=== PATIENT | male | born 1945 | race Caucasian/White ===

== ENCOUNTER 2020-09-17 | Outpatient (REF) | payer MEDICARE, SELFPAY | END 2020-09-17 00:01 | disposition home or self-care (01) | LOC: HO.VC | PROVIDERS: Visit Provider Internal Medicine | DX: Z23 Encounter for immunization (principal) | CPT/HCPCS: 0011A ==

== ENCOUNTER 2020-10-14 | Outpatient (REF) | payer MEDICARE, OTHER, SELFPAY | END 2020-10-14 00:01 | disposition home or self-care (01) | LOC: HO.VC | PROVIDERS: Visit Provider Internal Medicine | DX: Z23 Encounter for immunization (principal) | CPT/HCPCS: 0012A ==

== ENCOUNTER 2022-07-19 13:10 | Outpatient (REF) | payer MEDICARE, SELFPAY ==
[2022-07-19 16:58] LABS: Hematocrit 42.6 % (42.0-52.0); Hemoglobin 14.3 g/dl (14.0-18.0); Mean Corpuscular HGB Conc 33.6 g/dl (31.0-36.0); Mean Corpuscular Hemoglobin 33.3 pg (27.0-33.0); Mean Corpuscular Volume 99.3 fL (80.0-98.0); Mean Platelet Volume 9.2 fL (9.4-12.4); Platelet Count 196 X10*3/uL (160-400); Red Blood Count 4.29 X10*6/uL (4.60-5.80); Red Cell Distribution Width 11.5 % (11.0-16.0)
[2022-07-19 17:31] LABS: Alanine Aminotransferase 18 U/L (0-40); Albumin Level 4.5 g/dL (3.5-5.0); Alkaline Phosphatase 59 U/L (39-117); Anion Gap 12 (12-20); Aspartate Amino Transferase 22 U/L (5-37); Bilirubin Direct 0.2 mg/dL (0.0-0.5); Bilirubin Total 0.6 mg/dL (0.0-1.0); Blood Urea Nitrogen 18 mg/dL (9-16); Calcium 9.3 mg/dL (8.4-10.2); Carbon Dioxide 29 mmol/L (22-29); Chloride 100 mmol/L (96-108); Cholesterol 165 mg/dL; Estimated Glomerular Filt Rate > 60; Glucose Random 75 mg/dL (60-115); HDL Cholesterol 43 mg/dL; LDL Cholesterol Calculated 91 mg/dl; Potassium 4.3 mmol/L (3.3-5.1); Sodium 137 mmol/L (135-145); Thyroid Stimulating Hormone 1.24 uIU/mL (0.32-4.0); Total Protein 6.9 g/dL (6.5-8.0); Triglycerides 158 mg/dL
== END 2022-07-19 13:11 | disposition home or self-care (01) ==
LOC: HO.HMGCLDS 13:10
PROVIDERS: PCP Internal Medicine; Visit Provider Internal Medicine
DX: E78.00 Pure hypercholesterolemia, unspecified (principal); I10 Essential (primary) hypertension
CPT/HCPCS: 36415; 80048; 80061; 80076; 84443; 85027

== ENCOUNTER 2022-12-07 10:27 | Outpatient (REF) | payer MEDICARE, SELFPAY ==
--- NOTE | ~2022-12-07 | XR_ITS ---
EXAMINATION: XR CHEST CLINICAL INFORMATION: Cough. COMPARISON: January 09, 2011. TECHNIQUE: 2 views of the chest were obtained. XR/XR chest 2V FINDINGS/IMPRESSION: There is no acute radiographic finding. No focal infiltrate, effusion, or pneumothorax is seen. A calcified right middle lobe granuloma appears similar compared with prior. Mild biapical fibrotic changes and mild emphysema appear similar. There is a normal variant azygous fissure. The cardiovascular structures, mediastinum, bones, and soft tissues appear unremarkable.
== END 2022-12-07 10:28 | disposition home or self-care (01) ==
LOC: HO.HMGCX 10:27
PROVIDERS: PCP Internal Medicine; Visit Provider Internal Medicine
DX: R05.9 Cough, unspecified (principal)
CPT/HCPCS: 71046

== ENCOUNTER 2023-01-28 08:35 | Outpatient (REF) | payer MEDICARE, SELFPAY ==
[2023-01-28 11:17] LABS: Appearance Urine Clear; Color Urine Yellow; Glucose Urine UA Negative (Negative); Leukocyte Esterase Urine Negative (Negative); Nitrite Urine Negative (Negative); PH 6.5 (5.0-9.0); Urine Blood Negative (Negative); Urine Ketones Negative (Negative); Urine Protein Negative (Neg-Trace)
[2023-01-28 11:36] LABS: Hematocrit 42.2 % (42.0-52.0); Hemoglobin 14.4 g/dl (14.0-18.0); Mean Corpuscular HGB Conc 34.1 g/dl (31.0-36.0); Mean Corpuscular Hemoglobin 33.9 pg (27.0-33.0); Mean Corpuscular Volume 99.3 fL (80.0-98.0); Mean Platelet Volume 9.3 fL (9.4-12.4); Platelet Count 188 X10*3/uL (160-400); Red Blood Count 4.25 X10*6/uL (4.60-5.80); Red Cell Distribution Width 11.9 % (11.0-16.0); White Blood Count 5.5 X10*3/uL (4.8-10.8)
[2023-01-28 12:11] LABS: Alanine Aminotransferase 15 U/L (0-40); Albumin Level 4.1 g/dL (3.5-5.0); Alkaline Phosphatase 58 U/L (39-117); Anion Gap 11 (12-20); Aspartate Amino Transferase 24 U/L (5-37); Bilirubin Direct 0.2 mg/dL (0.0-0.5); Bilirubin Total 0.8 mg/dL (0.0-1.0); Blood Urea Nitrogen 15 mg/dL (9-16); Calcium 9.5 mg/dL (8.4-10.2); Carbon Dioxide 27 mmol/L (22-29); Chloride 100 mmol/L (96-108); Cholesterol 132 mg/dL; Estimated Glomerular Filt Rate > 60; Glucose Random 89 mg/dL (60-115); HDL Cholesterol 44 mg/dL; LDL Cholesterol Calculated 76 mg/dl; Potassium 4.6 mmol/L (3.3-5.1); Sodium 133 mmol/L (135-145); Total Protein 6.7 g/dL (6.5-8.0); Triglycerides 61 mg/dL
[2023-01-28 12:20] LABS: Thyroid Stimulating Hormone 1.72 uIU/mL (0.32-4.0)
== END 2023-01-28 08:36 | disposition home or self-care (01) ==
LOC: HO.HMGCLDS 08:35
PROVIDERS: PCP Internal Medicine; Visit Provider Internal Medicine
DX: I10 Essential (primary) hypertension (principal); E78.00 Pure hypercholesterolemia, unspecified
CPT/HCPCS: 36415; 80048; 80061; 80076; 81003; 84443; 85027

== ENCOUNTER 2023-08-04 08:51 | Outpatient (AMB) | payer MEDICARE, SELFPAY ==
--- NOTE | 2023-08-04 08:54 | A.OFFPC_ITS ---
Vital Signs 08/04/23 08:55 Height 6 ft Weight 153 lb 8 oz BMI 20.8 BP 140/80 H Blood Pressure Location Lt brachial Position Sitting Pulse 62 Pulse Source Pulse Oximeter Pulse Oximetry (%) 100 Oxygen Delivery Method Room Air Intake Visit Reasons: 6mth f/u Intake Note: Patient is here to follow up on HTN, Hypercholesterolemia. 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 Operator Vertical: Not Required per policy Accompanied by: Self / Same As Patient Allergies hydrochlorothiazide Adverse Reaction (Unknown, Verified 08/04/23 09:37) hyponatremia ENVIRONMENTAL Allergy (Unknown, Uncoded 08/04/23 09:37) ITCHY EYES Tobacco use date assessed: 08/04/23 Fall risk assessment: No Falls in past year Last assessed Fall Risk: 08/04/23 Dental Screening Dental Screen Date: 08/04/23 Did you have a dental visit in the last 12 months?: No Did you have a dental problem in the last 6 months where you did not have access to dental care?: No Was dental information given to patient?: Patient has dentist HPI 6mth f/u HPI Details 77-year-old male presents to the office to discuss his chronic medical conditions. Patient is at baseline state of health. He is compliant with all medications and reports no side effects. Continues to drive. Sleep patterns are healthy. Able to function and do all activities of daily living. [facility] Medical History History of CVA (cerebrovascular accident) Allergic rhinitis Pure hypercholesterolemia, unspecified Essential (primary) hypertension Surgical History History of surgery of head History of appendectomy Family History Father No problems noted. Mother No problems noted. Daughter No problems noted. Daughter No problems noted. Social History Housing: House Alcohol intake: current Alcohol intake frequency: holidays/special occasions only Patient Tobacco Use Status: Never used Tobacco e-Cigarette/Vaping Use: Never Used Second Hand Smoke Exposure: No service: Yes Current occupational status: retired Cognitive needs: No Hearing needs: No Vision needs: Yes (Glasses) Questionnaire Thrive Questionnaire Date Thrive assessed: 01/27/23 EMANI-7 AMB Questionnaire EMANI-7 Date EMANI - 7 assessed: 01/27/23 Source: Developed by Drs. Diallo Randhawa, Shoshana Childress, Papa Elder and colleagues, with an educational jessica from [employer]. Physical exam (Primary Care) Vital Signs: Last Vital Signs Pulse 62 08/04/23 08:55 BP 140/80 H 08/04/23 08:55 Pulse Ox 100 08/04/23 08:55 Oxygen Delivery Method Room Air 08/04/23 08:55 Care Plan Goal for BP management: Blood pressure is in range. Continue medications at same dosage. BMI result Body Mass Index 20.8 Tobacco/Smoking Status: Tobacco use Status Tobacco use date assessed 08/04/23 08/04/23 09:02 Patient Tobacco Use Status Never used Tobacco 08/04/23 09:02 e-Cigarette/Vaping Use Never Used 08/04/23 09:02 Thrive Assessment: Date of Thrive Assessment Date Thrive assessed 01/27/23 08/04/23 09:02 Const General: cooperative and healthy appearing Nutritional Appearance: well nourished Orientation/consciousness: patient oriented x3 Limitations: no limitations HENMT Head: Yes normal to inspection Eyes General: appearance normal, both eyes and all related structures Neck Neck: Yes normal visual inspection Chest Chest palpation & inspection: normal palpation of entire chest wall Resp Effort & Inspection: normal respiratory effort Neuro General: patient oriented x3 Assessment and Plan Assessment & Plan (1) Essential (primary) hypertension: Code(s): I10 - Essential (primary) hypertension Plan: Blood pressure is in range. Continue medications at same dosage. (2) Pure hypercholesterolemia, unspecified: Code(s): E78.00 - Pure hypercholesterolemia, unspecified Plan: Blood work has been ordered. Will call with results. Medications: Refilled metoprolol tartrate 25 mg PO DAILY 90 tabs 0RF Coding Level of Care Code Est Pt Level 4 (58214) Diagnoses Essential (primary) hypertension I10 Pure hypercholesterolemia, unspecified E78.00
[2023-08-04 08:55] VITALS: BP 140/80; PULSE 62; O2SAT 100; BMI 20.8
== END 2023-08-04 09:31 | disposition home or self-care (01) ==
PROVIDERS: PCP Internal Medicine; Visit Provider Internal Medicine
DX: I10 Essential (primary) hypertension (principal); E78.00 Pure hypercholesterolemia, unspecified
CPT/HCPCS: 99214

== ENCOUNTER 2023-08-05 14:29 | Outpatient (REF) | payer MEDICARE, SELFPAY ==
[2023-08-05 16:14] LABS: Hemoglobin 14.6 g/dl (14.0-18.0); Mean Corpuscular Volume 97.1 fL (80.0-98.0); Mean Platelet Volume 9.2 fL (9.4-12.4); Platelet Count 190 X10*3/uL (160-400); Red Blood Count 4.43 X10*6/uL (4.60-5.80); Red Cell Distribution Width 11.5 % (11.0-16.0); White Blood Count 6.7 X10*3/uL (4.8-10.8)
[2023-08-05 16:23] LABS: Appearance Urine Clear; Color Urine Yellow; Glucose Urine UA Negative (Negative); Leukocyte Esterase Urine Negative (Negative); Nitrite Urine Negative (Negative); Specific Gravity - Urine 1.015 (1.005-1.025); Urine Blood Negative (Negative); Urine Ketones Negative (Negative); Urine Protein Negative (Neg-Trace)
[2023-08-05 20:48] LABS: Alanine Aminotransferase 16 U/L (0-40); Albumin Level 4.4 g/dL (3.5-5.0); Alkaline Phosphatase 58 U/L (39-117); Anion Gap 11 (12-20); Aspartate Amino Transferase 21 U/L (5-37); Bilirubin Direct 0.2 mg/dL (0.0-0.5); Bilirubin Total 0.4 mg/dL (0.0-1.0); Blood Urea Nitrogen 18 mg/dL (9-16); Calcium 9.4 mg/dL (8.4-10.2); Carbon Dioxide 28 mmol/L (22-29); Chloride 101 mmol/L (96-108); Cholesterol 152 mg/dL (<200); Estimated Glomerular Filt Rate > 60; Glucose Random 67 mg/dL (60-115); HDL Cholesterol 44 mg/dL (>40); LDL Cholesterol Calculated 86 mg/dL (<100); Sodium 136 mmol/L (135-145); Total Protein 7.1 g/dL (6.5-8.0); Triglycerides 114 mg/dL (<150)
[2023-08-05 21:02] LABS: Thyroid Stimulating Hormone 1.48 uIU/mL (0.32-4.0)
== END 2023-08-05 14:30 | disposition home or self-care (01) ==
LOC: HO.HMGCLDS 14:29
PROVIDERS: PCP Internal Medicine; Visit Provider Internal Medicine
DX: I10 Essential (primary) hypertension (principal); E78.00 Pure hypercholesterolemia, unspecified
CPT/HCPCS: 36415; 80048; 80061; 80076; 81003; 84443; 85027

== ENCOUNTER 2024-02-02 09:08 | Outpatient (AMB) | payer MEDICARE, SELFPAY ==
--- NOTE | 2024-02-02 09:17 | A.OFFPC_ITS ---
Vital Signs 02/02/24 09:19 Height 6 ft Weight 149 lb 8 oz BMI 20.3 BP 132/72 Blood Pressure Location Lt brachial Position Sitting Pulse 70 Pulse Source Pulse Oximeter Pulse Oximetry (%) 97 Oxygen Delivery Method Room Air Intake Visit Reasons: 6 month f/u Intake Note: Patient is here to follow up on HTN, Hypercholesterolemia. 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 Required: No Electric Meter Technician: Not Required per policy Accompanied by: Self / Same As Patient Allergies hydrochlorothiazide Adverse Reaction (Unknown, Verified 02/03/24 15:35) hyponatremia ENVIRONMENTAL Allergy (Unknown, Uncoded 02/03/24 15:35) ITCHY EYES Medication List - Last Reconciled 02/03/24 by Vinny Flores MD acetaminophen (Tylenol Extra Strength) 500 mg PO QPM PRN aspirin 325 mg PO QPM fluticasone propionate 50 mcg/actuation (Allergy Relief (fluticasone)) 1 spray intranasal DAILY lisinopril 10 mg PO DAILY loratadine (Allergy Relief (loratadine)) 10 mg PO DAILY metoprolol tartrate 25 mg PO DAILY psyllium seed (sugar) (Metamucil (sugar) oral powder) 1 tbsp PO DAILY simvastatin 20 mg PO QPM Tobacco use date assessed: 02/02/24 Fall risk assessment: No Falls in past year Last assessed Fall Risk: 02/02/24 Dental Screening Dental Screen Date: 02/02/24 Did you have a dental visit in the last 12 months?: Yes Did you have a dental problem in the last 6 months where you did not have access to dental care?: No Was dental information given to patient?: Patient has dentist (Dentures) HPI 6 month f/u HPI Details 78-year-old male presents to the office to discuss his chronic medical conditions. Patient is at baseline state of health and is able to do all activities of daily living. He received his 1st dose of his shingles shot. [facility] Medical History History of CVA (cerebrovascular accident) Allergic rhinitis Pure hypercholesterolemia, unspecified Essential (primary) hypertension Surgical History History of surgery of head History of appendectomy Family History Father No problems noted. Mother No problems noted. Daughter No problems noted. Daughter No problems noted. Social History Housing: House Alcohol intake: current Alcohol intake frequency: holidays/special occasions only Patient Tobacco Use Status: Never used Tobacco e-Cigarette/Vaping Use: Never Used Second Hand Smoke Exposure: No service: Yes Current occupational status: retired Cognitive needs: No Hearing needs: No Vision needs: Yes (Glasses) Questionnaire PHQ-9 Over the last 2 weeks, how often have you been bothered by any of the following problems? 1. Little interest or pleasure in doing things: not at all 2. Feeling down, depressed, or hopeless: not at all 3. Trouble falling or staying asleep, or sleeping too much: not at all 4. Feeling tired or having little energy: not at all 5. Poor appetite or overeating: not at all 6. Feeling bad about yourself - or that you are a failure or have let yourself or your family down: not at all 7. Trouble concentrating on things, such as reading the newspaper or watching television: not at all 8. Moving or speaking so slowly that other people could have noticed. Or the opposite - being so fidgety or restless that you have been moving around a lot more than usual: not at all 9. Thoughts that you would be better off or of hurting yourself in some way: not at all Total score: 0 Depression Screening Interpretation: Negative Depression Screening Done: Yes Source: Developed by Drs. Diallo Randhawa, Shoshana Childress, Papa Elder and colleagues, with an educational jessica from [employer]. Thrive Questionnaire Date Thrive assessed: 02/02/24 I am a: Patient What is your living situation today?: I have a steady place to live Within the past 12 months, did the food you bought not last and you didn't have the money to get more?: Never true Within the past 12 months, did you worry whether your food would run out before you got money to buy more?: Never true Do you have trouble paying for medicines?: No Do you have trouble getting transportation to medical appointments?: No Do you have trouble paying your heating and electricity bill?: No Do you have trouble taking care of your child, family member or friend?: No Do you have trouble with day-to-day activities such as bathing, preparing meals, shopping, managing finances, etc.?: No Are you currently unemployed and looking for a job?: No Are you interested in more education?: No Currently or been in a relationship where the following occur: no concerns reported THRIVE Score: 0 AUDIT C Alcohol Use Questionnaire (AUDIT-C) 1. How often do you have a drink containing alcohol?: 2-4 times a month 2. How many drinks containing alcohol do you have on a typical day when you are drinking?: 1 or 2 Total Score: 2 EMANI-7 AMB Questionnaire EMANI-7 Date EMANI - 7 assessed: 02/02/24 Feeling nervous, anxious, or on edge: 0 = Not at all Not being able to stop or control worryin = Not at all Worrying too much about different things: 0 = Not at all Trouble relaxin = Not at all Being so restless that it is hard to sit still: 0 = Not at all Becoming easily annoyed or irritable: 0 = Not at all Feeling afraid as if something awful might happen: 0 = Not at all Total EMANI-7 score (0-4 normal; 5-9 mild; 10-14 moderate; 15-21 severe): 0 Source: Developed by Drs. Diallo Randhawa, Shoshana Childress, Papa Elder and colleagues, with an educational jessica from [employer]. Physical exam (Primary Care) Vital Signs: Last Vital Signs Pulse 70 02/02/24 09:19 BP 132/72 02/02/24 09:19 Pulse Ox 97 02/02/24 09:19 Oxygen Delivery Method Room Air 02/02/24 09:19 BMI result Body Mass Index 20.3 Tobacco/Smoking Status: Tobacco use Status Tobacco use date assessed 02/02/24 02/02/24 09:26 Patient Tobacco Use Status Never used Tobacco 02/02/24 09:26 e-Cigarette/Vaping Use Never Used 02/02/24 09:26 PHQ-9: PHQ-9 Score PHQ-9: Total score 0 02/02/24 10:04 Depression Screening Interpretation: Negative Thrive Assessment: Date of Thrive Assessment Date Thrive assessed 02/02/24 02/02/24 09:26 Currently or been in a relationship where the following occur: no concerns reported Const General: cooperative and healthy appearing Nutritional Appearance: well nourished Orientation/consciousness: patient oriented x3 Limitations: no limitations HENMT Head: Yes normal to inspection Eyes General: appearance normal, both eyes and all related structures Neck Neck: Yes normal visual inspection Chest Chest palpation & inspection: normal palpation of entire chest wall Resp Effort & Inspection: normal respiratory effort Neuro General: patient oriented x3 Assessment and Plan Assessment & Plan (1) Essential (primary) hypertension: Code(s): I10 - Essential (primary) hypertension Plan: Continue current medications. Orders: Orders Lipid Panel Today I10 - Essential (primary) hypertension Basic Metabolic Panel Today I10 - Essential (primary) hypertension Liver Panel Today I10 - Essential (primary) hypertension Thyroid Stimulating Hormone Today I10 - Essential (primary) hypertension UA and rflx microscopic Today I10 - Essential (primary) hypertension Complete Blood Count no Diff Today I10 - Essential (primary) hypertension Medications: Refilled metoprolol tartrate 25 mg PO DAILY 90 tabs 0RF lisinopril needs an appointment for further refills 10 mg PO DAILY 90 tabs 0RF Coding Level of Care Code Est Pt Level 3 (62161) Complex EM visit Add On G2211 Diagnoses Essential (primary) hypertension I10
[2024-02-02 09:19] VITALS: BP 132/72; PULSE 70; O2SAT 97; BMI 20.3
== END 2024-02-02 10:10 | disposition home or self-care (01) ==
PROVIDERS: PCP Internal Medicine; Visit Provider Internal Medicine
DX: I10 Essential (primary) hypertension (principal)
CPT/HCPCS: 99213; G2211

== ENCOUNTER 2024-02-03 07:58 | Outpatient (REF) | payer MEDICARE, SELFPAY ==
[2024-02-03 11:33] LABS: Hematocrit 42.5 % (42.0-52.0); Hemoglobin 14.7 g/dl (14.0-18.0); Mean Corpuscular HGB Conc 34.6 g/dl (31.0-36.0); Mean Corpuscular Hemoglobin 33.9 pg (27.0-33.0); Mean Corpuscular Volume 98.2 fL (80.0-98.0); Mean Platelet Volume 9.1 fL (9.4-12.4); Platelet Count 198 X10*3/uL (160-400); Red Blood Count 4.33 X10*6/uL (4.60-5.80); Red Cell Distribution Width 11.5 % (11.0-16.0); White Blood Count 6.1 X10*3/uL (4.8-10.8)
[2024-02-03 12:03] LABS: Appearance Urine Clear; Color Urine Yellow; Glucose Urine UA Negative (Negative); Leukocyte Esterase Urine Negative (Negative); Nitrite Urine Negative (Negative); Urine Blood Negative (Negative); Urine Ketones Negative (Negative); Urine Protein Negative (Neg-Trace)
[2024-02-03 12:05] LABS: Alanine Aminotransferase 14 U/L (0-40); Albumin Level 4.3 g/dL (3.5-5.0); Alkaline Phosphatase 59 U/L (39-117); Anion Gap 10 (12-20); Aspartate Amino Transferase 21 U/L (5-37); Bilirubin Direct 0.2 mg/dL (0.0-0.5); Bilirubin Total 0.7 mg/dL (0.0-1.0); Blood Urea Nitrogen 15 mg/dL (9-16); Calcium 9.5 mg/dL (8.4-10.2); Carbon Dioxide 28 mmol/L (22-29); Chloride 100 mmol/L (96-108); Cholesterol 143 mg/dL (<200); Estimated Glomerular Filt Rate > 60; Glucose Random 98 mg/dL (60-115); HDL Cholesterol 43 mg/dL (>40); LDL Cholesterol Calculated 87 mg/dL (<100); Potassium 4.3 mmol/L (3.3-5.1); Sodium 134 mmol/L (135-145); Total Protein 6.8 g/dL (6.5-8.0); Triglycerides 67 mg/dL (<150)
[2024-02-03 12:27] LABS: Thyroid Stimulating Hormone 1.82 uIU/mL (0.32-4.0)
== END 2024-02-03 07:59 | disposition home or self-care (01) ==
LOC: HO.HMGCLDS 07:58
PROVIDERS: PCP Internal Medicine; Visit Provider Internal Medicine
DX: I10 Essential (primary) hypertension (principal)
CPT/HCPCS: 36415; 80048; 80061; 80076; 81003; 84443; 85027

== ENCOUNTER 2024-03-30 09:54 | Outpatient (AMB) | payer MEDICARE, SELFPAY ==
--- NOTE | 2024-03-30 09:56 | MHC.OFFWIV ---
Intake Vital Signs 03/30/24 10:00 Height 6 ft Weight 153 lb BMI 20.7 BP 110/70 Blood Pressure Location Rt brachial Position Sitting Pulse 82 Pulse Source Pulse Oximeter Temp 98.4 F Temp Source Oral Pulse Oximetry (%) 98 Oxygen Delivery Method Room Air Intake Visit Reasons: EP headache, fever, chills, no appetite Intake Note: Patient here for low grade fever,clear mucus and no appetite since yesterday. pt states he took an at home covid test and came back positive. Patient Tobacco Use Status: Never used Tobacco Allergies hydrochlorothiazide Adverse Reaction (Unknown, Verified 03/30/24 10:02) hyponatremia ENVIRONMENTAL Allergy (Unknown, Uncoded 03/30/24 10:02) ITCHY EYES Do you need a note to return to daycare/school/sports/work: No HPI HPI Comments History of Present Illness Details 78 y/o male patient who presents to the walk in clinic with c/o URI symptoms since yesterday. He did use a Home test kit with positive results. But reports that the test Kit had back in August. [facility] Medical History History of CVA (cerebrovascular accident) Allergic rhinitis Pure hypercholesterolemia, unspecified Essential (primary) hypertension Surgical History History of surgery of head History of appendectomy Family History Father No problems noted. Mother No problems noted. Daughter No problems noted. Daughter No problems noted. Social History Housing: House Alcohol intake: current Alcohol intake frequency: holidays/special occasions only Patient Tobacco Use Status: Never used Tobacco e-Cigarette/Vaping Use: Never Used Second Hand Smoke Exposure: No service: Yes Current occupational status: retired Cognitive needs: No Hearing needs: No Vision needs: Yes (Glasses) Review of Systems Const All systems reviewed & are unremarkable except as noted in HPI and below Physical Exam Vital Signs: Last Vital Signs Temp 98.4 F 03/30/24 10:00 Pulse 82 03/30/24 10:00 BP 110/70 03/30/24 10:00 Pulse Ox 98 03/30/24 10:00 Oxygen Delivery Method Room Air 03/30/24 10:00 BMI result Body Mass Index 20.7 Const General: comfortable and no acute distress Orientation/consciousness: patient oriented x3 HEENT Head: Yes normocephalic Ears: external ears normal and TM's normal bilaterally General nose exam: Normal external nose present Face and sinus: Yes sinuses nontender Mouth: moist mucous membranes Throat: Yes posterior oropharynx normal Resp Effort & Inspection: normal respiratory effort and able to speak in complete sentences Auscultation: clear to auscultation bilaterally, no crackles, no rales, no rhonchi and no wheezes Cardio Heart sounds: S1 normal heart sound present and S2 normal heart sound present Neuro General: patient oriented x3, gait normal and moves all extremities Psych Speech and movement: Normal speech and movement present Assessment & Plan Assessment & Plan (1) Upper respiratory infection: Code(s): J06.9 - Acute upper respiratory infection, unspecified Qualifiers: URI type: unspecified viral URI Qualified Code(s): J06.9 - Acute upper respiratory infection, unspecified Plan: Ordered SARs Acetaminophen for pain relief Rest and hydrate well. Orders: Orders SARS-CoV2/FLU/RSV Today J06.9 - Acute upper respiratory infection, unspecified Coding Level of Care Code Est Pt Level 3 (73151) Diagnoses Viral upper respiratory tract infection J06.9 URI type: unspecified viral URI Time Spent (min) 15
[2024-03-30 10:00] VITALS: BP 110/70; PULSE 82; TEMP 36.9; O2SAT 98; BMI 20.7
== END 2024-03-30 10:55 | disposition home or self-care (01) ==
PROVIDERS: PCP Internal Medicine; Visit Provider Nurse Practitioner Family
DX: J06.9 Acute upper respiratory infection, unspecified (principal)
CPT/HCPCS: 99213

== ENCOUNTER 2024-03-30 13:15 | Outpatient (REF) | payer MEDICARE, SELFPAY ==
[2024-03-30 14:05] LABS: Influenza A PCR NEGATIVE (Negative); Influenza B PCR NEGATIVE (Negative); Resp Syncy Virus RNA Qual PCR NEGATIVE (Negative); SARS COV2 PCR INHOUSE POSITIVE (Negative)
== END 2024-03-30 13:16 | disposition home or self-care (01) ==
LOC: HO.LNP 13:15
PROVIDERS: Visit Provider Nurse Practitioner Family
DX: J06.9 Acute upper respiratory infection, unspecified (principal)
CPT/HCPCS: 0241U

== ENCOUNTER 2024-04-01 04:06 | Observation (INO) | payer MEDICARE, SELFPAY ==
[2024-04-01] VITALS (12 sets, daily range): BP systolic 103–168; BP diastolic 57–82; PULSE 70–107; RESP 16–20; TEMP 36.6–37.7; O2SAT 90–95; BMI 19.3; BMI 19.8
--- NOTE | 2024-04-01 | ECG_ITS ---
Test Reason : WEAKNESS Blood Pressure : / mmHG Vent. Rate : 077 BPM Atrial Rate : 077 BPM P-R Int : 146 ms QRS Dur : 086 ms QT Int : 354 ms P-R-T Axes : 074 056 068 degrees QTc Int : 400 ms Normal sinus rhythm Normal ECG When compared with ECG of 01-OCT-2015 16:51, No significant change was found Referred By: Generic ED Physician Electronically Signed By:JOSEPH REMY
--- NOTE | ~2024-04-01 | XR_ITS ---
EXAMINATION: XR CHEST CLINICAL INFORMATION: Shortness of breath. COMPARISON: 12/07/2022 TECHNIQUE: Frontal view of the chest was obtained. FINDINGS: The cardiomediastinal silhouette is stable. There is no focal consolidation or pleural effusions. The bony structures and soft tissues are unremarkable. XR/XR chest 1V IMPRESSION: No acute cardiopulmonary process.
[2024-04-01 04:28] LABS: MANUAL DIFF FLAG NO
[2024-04-01 04:29] LABS: Basophils Percent Auto 0.4 % (0-2); Hematocrit 40.2 % (42.0-52.0); Hemoglobin 14.3 g/dl (14.0-18.0); Imm Gran Abs Auto 0.02 X10*3/uL (0.00-0.03); Imm Gran Pct Auto 0.4 % (0.0-0.4); Lymphocytes Absolute Auto 0.6 X10*3/uL (1.2-4.9); Lymphocytes Percent Auto 12.2 % (20-40); Mean Corpuscular HGB Conc 35.6 g/dl (31.0-36.0); Mean Corpuscular Volume 95.5 fL (80.0-98.0); Monocytes Absolute Auto 0.8 X10*3/uL (0.1-1.2); Monocytes Percent Auto 16.2 % (2-11); Neutrophils Absolute Auto 3.3 x10*3/uL (2.0-8.3); Neutrophils Percent Auto 70.8 % (45-73); Platelet Count 103 X10*3/uL (160-400); Red Blood Count 4.21 X10*6/uL (4.60-5.80); Red Cell Distribution Width 11.8 % (11.0-16.0); White Blood Count 4.7 X10*3/uL (4.8-10.8)
--- NOTE | 2024-04-01 04:29 | PC.NURSE ---
pt biba from home, a&ox4, respirations even and unlabored. pt reporting being diagnosed with covid on tuesday and reports increased sore throat, shortness of breath, weakness, and dry cough. pt denies chest pain, n,v,d. 20G placed in left forearm, labs obtained and sent. pt noted to have thick sputum cough.
[2024-04-01 04:35] LABS: IDNOW Serial# 6674DD1D; Strep A Nucleic Acid Negative (Negative)
[2024-04-01 04:45] LABS: Alanine Aminotransferase 22 U/L (0-40); Albumin Level 4.3 g/dL (3.5-5.0); Alkaline Phosphatase 57 U/L (39-117); Anion Gap 14 (12-20); Aspartate Amino Transferase 33 U/L (5-37); Bilirubin Total 0.5 mg/dL (0.0-1.0); Blood Urea Nitrogen 18 mg/dL (9-16); Calcium 8.9 mg/dL (8.4-10.2); Carbon Dioxide 24 mmol/L (22-29); Chloride 98 mmol/L (96-108); Creatinine Clr Calc Pharmacy 47.4; Estimated Glomerular Filt Rate > 60; Glucose Random 93 mg/dL (60-115); Potassium 4.1 mmol/L (3.3-5.1); Sodium 132 mmol/L (135-145); Total Protein 6.8 g/dL (6.5-8.0)
[2024-04-01 05:04] LABS: Influenza A PCR NEGATIVE (Negative); Influenza B PCR NEGATIVE (Negative); Resp Syncy Virus RNA Qual PCR NEGATIVE (Negative); SARS COV2 PCR INHOUSE POSITIVE (Negative)
[2024-04-01] MEDS: Albuterol Sulfate 2.5 MG, Albuterol/Iprat 2.5/0.5MG 3 ML 3 ML INHALE (06:00)
--- NOTE | 2024-04-01 06:23 | PC.NURSE ---
respiratory at bedside providing breathing treatment for pt.
--- NOTE | 2024-04-01 06:57 | ED_ITS ---
HPI - URI/Sore Throat General Chief Complaint: Upper Respiratory Symptoms Stated Complaint: +COVIID/WEAKNESS/SORE THROAT/DIARRHEA Time Seen by Provider: 04/01/24 06:43 Source: patient Mode of arrival: ambulatory Limitations: no limitations History of Present Illness ED Provider: Mariana LEA HPI Narrative: This is an 78-year-old male history of hypertension, hyperlipidemia, squamous cell carcinoma in-situ presenting to the emergency department with cough, fatigue, malaise, myalgias , diarrhea ongoing since last March 29. Patient reports that he went to the walk-in center on Tuesday was told he had COVID-19. He reports his cough has worsened now he has a sore throat and he feels overall unwell. He was told to come to the emergency department if symptoms worsened. He reports low-grade fevers at home. He denies chest pain, nausea, vomiting, abdominal pain, headache, vision changes, dizziness and weakness. Related Data Home Medications ?Medication ?Instructions ?Recorded ?Confirmed acetaminophen 500 mg tablet 500 mg PO QPM PRN 10/07/20 01/27/23 (Tylenol Extra Strength) aspirin 325 mg tablet 325 mg PO QPM 10/07/20 01/27/23 fluticasone propionate 50 1 spray intranasal DAILY 10/07/20 01/27/23 mcg/actuation nasal spray,suspension (Allergy Relief (fluticasone)) loratadine 10 mg tablet (Allergy 10 mg PO DAILY 10/07/20 01/27/23 Relief (loratadine)) psyllium seed (sugar) oral powder 1 tbsp PO DAILY 10/07/20 01/27/23 (Metamucil (sugar) oral powder) Previous Rx's ?Medication ?Instructions ?Recorded metoprolol tartrate 25 mg tablet 25 mg PO DAILY #90 tabs 02/08/24 lisinopril 10 mg tablet 10 mg PO DAILY #90 tabs 02/29/24 simvastatin 20 mg tablet 20 mg PO QPM #90 tabs 03/16/24 Allergies Allergy/AdvReac Type Severity Reaction Status Date / Time hydrochlorothiazide AdvReac Unknown hyponatremi Verified 04/01/24 04:14 a ENVIRONMENTAL Allergy Unknown ITCHY EYES Uncoded 04/01/24 04:14 Review of Systems 2 Review of Systems: Yes all other systems are reviewed and are negative PMFSH Past Medical History Attestation statement: The following information was validated with the patient. Source: old records reviewed and nursing notes reviewed Medical History History of CVA (cerebrovascular accident) Allergic rhinitis Pure hypercholesterolemia, unspecified Essential (primary) hypertension Surgical History History of surgery of head History of appendectomy Family History Family History Father No problems noted. Mother No problems noted. Daughter No problems noted. Daughter No problems noted. Social History Social History Housing: House Alcohol intake: current Alcohol intake frequency: holidays/special occasions only Patient Tobacco Use Status: Never used Tobacco Smoked in Last 30 Days: No e-Cigarette/Vaping Use: Never Used Second Hand Smoke Exposure: No Use of substances other than those prescribed or required for medical reasons: No Advance Directives: Yes Advance Directives Information Provided: No Advance Directives on File: No Do you have a plan to hurt others: No Plan service: Yes Current occupational status: retired Cognitive needs: No Hearing needs: No Vision needs: Yes (Glasses) Physical Exam 2 Vital Signs: Vital Signs: Last Vital Signs Temp 98.8 F 04/01/24 06:21 Pulse 102 H 04/01/24 06:21 Resp 18 04/01/24 06:21 BP 141/65 H 04/01/24 06:21 Pulse Ox 95 04/01/24 06:21 O2 Del Method Room Air 04/01/24 06:21 BMI result Body Mass Index 19.3 vss Appearance: Alert.? Oriented X3.? No acute distress.? Head: Normocephalic, atraumatic, no step-offs or deformities Eyes: Pupils equal, round and reactive to light.? ENT: Pharynx normal.? Neck: Normal inspection.? Neck supple.? CVS: Normal heart rate and rhythm.? Pulses normal.? Respiratory: No respiratory distress.? Breath sounds w/ slight wheezing throughout .? Abdomen: Soft and nontender.? Skin: Skin warm and dry.? Normal skin color.? Normal skin turgor.? Extremities: No lower extremity edema.? No calf ttp. 5/5 strength to bilateral upper and lower extremities Neuro: Oriented X 3.? No motor deficit.? No sensory deficit. CN 2-12 intact Course Reevaluation(s) Reevaluation #1: CBC with leukopenia likely secondary to viral illness, platelets also low again likely secondary to viral illness. Chemistry with low sodium 132, slightly elevated BUN and creatinine likely secondary to poor p.o. intake/dehydration. For these reasons fluids ordered. No other acute electrolyte abnormalities needing intervention . Confirmed patient COVID positive. Chest x-ray with no acute cardiopulmonary process. Patient far too weak to stand up and ambulate for ambulatory O2 trial. EKG pending. Time: 08:24 Reevaluation #2: Plan hospital admission. Medications Administered Discontinued Medications Generic Name Dose Route Start Last Admin Trade Name Freq PRN Reason Stop Dose Admin Albuterol Sulfate 2.5 mg/ 0 mg 04/01/24 05:42 04/01/24 06:00 Albuterol/Ipratropium 3 ml INHALE 04/01/24 05:43 3.5 dose ONCE ONE Administration Sodium Chloride 500 mls @ 500 mls/hr 04/01/24 07:00 04/01/24 08:17 Ns IV 04/01/24 07:59 Infused .Q1H LUKASZ Infusion Lidocaine HCl 15 ml 04/01/24 06:59 04/01/24 07:10 Lidocaine Hcl Viscous 2 % 15 Ml Solution MUCOUS MEM 04/01/24 07:00 15 ml ONCE ONE Administration Medical Decision Making Medical Decision Making [facility] Narrative: 0700 78 yo m known covid + since tuesday presents w/ worsening URI sx PE - slight wheezing throughout Hx and pe concerning for COVID 19. Will rule out pna and hypoxia. Unlikley PE, ARDS, ACS Plan- labs, imaging Differential Diagnosis Differential Diagnoses: The differential diagnosis associated with the presentation includes Hx and pe concerning for COVID 19. Will rule out pna and hypoxia. Unlikley PE, ARDS, ACS Admission/Observation Consideration of admission/observation: Escalation of care including admission/observation considered possible Lab Data [facility] Lab Attestation statement: I reviewed the patient's lab results. 04/01/24 04:19 04/01/24 04:19 Labs: Lab Results 04/01/24 Range/Units 04:19 WBC 4.7 L (4.8-10.8) X10*3/uL RBC 4.21 L (4.60-5.80) X10*6/uL Hgb 14.3 (14.0-18.0) g/dl Hct 40.2 L (42.0-52.0) % MCV 95.5 (80.0-98.0) fL MCH 34.0 H (27.0-33.0) pg MCHC 35.6 (31.0-36.0) g/dl RDW 11.8 (11.0-16.0) % Plt Count 103 L D (160-400) X10*3/uL MPV 9.0 L (9.4-12.4) fL Immature Gran % (Auto) 0.4 (0.0-0.4) % Neut % (Auto) 70.8 (45-73) % Lymph % (Auto) 12.2 L (20-40) % Hayes % (Auto) 16.2 H (2-11) % Eos % (Auto) 0.0 (0-4) % Baso % (Auto) 0.4 (0-2) % Lymph # (Auto) 0.6 L (1.2-4.9) X10*3/uL Hayes # (Auto) 0.8 (0.1-1.2) X10*3/uL Eos # (Auto) 0.0 (0.0-0.4) X10*3/uL Baso # (Auto) 0.0 (0.0-0.2) X10*3/uL Abs Immat Gran (auto) 0.02 (0.00-0.03) X10*3/uL Absolute Neuts (auto) 3.3 (2.0-8.3) x10*3/uL Absolute Nucleated RBC 0.000 (0.0-0.012) X10*3/uL Nucleated RBC % (auto) 0.0 (0.0-0.2) /100WBC Sodium 132 L (135-145) mmol/L Potassium 4.1 (3.3-5.1) mmol/L Chloride 98 (96-108) mmol/L Carbon Dioxide 24 (22-29) mmol/L Anion Gap 14 (12-20) BUN 18 H (9-16) mg/dL Creatinine 1.13 (0.5-1.4) mg/dL Estim Creat Clear Calc 47.4 Estimated GFR > 60 Random Glucose 93 (60-115) mg/dL Calcium 8.9 D (8.4-10.2) mg/dL Total Bilirubin 0.5 (0.0-1.0) mg/dL AST 33 (5-37) U/L ALT 22 (0-40) U/L Alkaline Phosphatase 57 (39-117) U/L Total Protein 6.8 (6.5-8.0) g/dL Albumin 4.3 (3.5-5.0) g/dL Influenza Type A (PCR) NEGATIVE (Negative) Influenza Type B (PCR) NEGATIVE (Negative) RSV RNA Qual (PCR) NEGATIVE (Negative) SARS-CoV-2 RNA (RT-PCR) POSITIVE A (Negative) S. pyogenes GrpA LORI Negative (Negative) Independent Interpretation I performed an independent interpretation of an: Plain X-Ray (XR/XR chest 1V IMPRESSION: No acute cardiopulmonary process. ) Radiology Impression Discussion of test interpretation with radiology: I have reviewed the radiologist's reading. External Record Review External record reviewed: Office record, Outpatient record and Prior outpatient labs Chronic Conditions Patient?s care impacted by: Hypertension and Other (HLD ) Discharge Plan Discharge Clinical Impression: COVID-19, Physical deconditioning Patient Disposition: Admitted As Inpatient Prescriptions: No Action metoprolol tartrate 25 mg tablet 25 mg PO DAILY Qty: 90 0RF lisinopril 10 mg tablet 10 mg PO DAILY Qty: 90 0RF Rx Instructions: needs an appointment for further refills simvastatin 20 mg tablet 20 mg PO QPM Qty: 90 0RF aspirin 325 mg tablet 325 mg PO QPM acetaminophen [Tylenol Extra Strength] 500 mg tablet 500 mg PO QPM PRN Metamucil (sugar) Powder 1 tbsp PO DAILY loratadine [Allergy Relief (loratadine)] 10 mg tablet 10 mg PO DAILY fluticasone propionate [Allergy Relief (fluticasone)] 50 mcg/actuation spray,suspension 1 spray intranasal DAILY Rx Instructions: administer into each nostril Print Language: Danish
[2024-04-01] MEDS: Lidocaine HCl Viscous 2 % 15 ML SOLUTION MUCOUS MEM (07:10)
[2024-04-01] MEDS: 0.9 % Sodium Chloride 500 ML IV (07:12)
--- NOTE | 2024-04-01 07:16 | PC.NURSE ---
medicated per the MAR, fluids infusing at this time. remains alert and oriented with even and unlabored respirations
--- NOTE | 2024-04-01 08:27 | PC.NURSE ---
utilized urinal at bedside, patient unsteady upon standing. usually independent at home, however patient needed assistance to get up out of bed and stand to use urinal. reporting some improvement s/p lidocaine
--- NOTE | 2024-04-01 10:05 | PHA.MEDREC ---
Addendum entered by David Snyder RPh 04/01/24 10:33: Reviewed [facility] Original Note: Pharmacy Consult ? Medication Reconciliation Pharmacy has completed the medication reconciliation. Spoke with patient to confirm medications. He took his medications yesterday. he confirmed his aspirin is 325mg daily.
--- NOTE | 2024-04-01 10:39 | P.HPHOSP_ITS ---
History of Present Illness Date of Service: 04/01/24 Chief Complaint: sob, weakness, +covid since 03/29 An 78-year-old male with a history of hypertension, hyperlipidemia, and a past cerebrovascular accident presents with weakness, cough, sore throat and diarrhea. He was diagnosed with COVID-19 on 03/29 and has been feeling generally unwell, which worsened last night with the onset of diarrhea, cough, and a sore throat. He denies shortness of breath but has had a poor appetite. He is not hypoxic, his chest X-ray shows no acute findings, his COVID-19 test is still positive, and his electrolytes are within normal limits. Review of Systems 2 Review of Systems: Gen: no fever Resp:-sob, +cough, wheezign CV: no chest, no AGUDELO, no leg edema GI: No n/v, no abd pain Neuro: No confusion [facility] Medical History History of CVA (cerebrovascular accident) Allergic rhinitis Pure hypercholesterolemia, unspecified Essential (primary) hypertension Family History Father No problems noted. Mother No problems noted. Daughter No problems noted. Daughter No problems noted. Surgical History History of surgery of head History of appendectomy Social History Housing: House Alcohol intake: current Alcohol intake frequency: holidays/special occasions only Patient Tobacco Use Status: Never used Tobacco Smoked in Last 30 Days: No e-Cigarette/Vaping Use: Never Used Second Hand Smoke Exposure: No Use of substances other than those prescribed or required for medical reasons: No Advance Directives: Yes Advance Directives Information Provided: No Advance Directives on File: No Do you have a plan to hurt others: No Plan service: Yes Current occupational status: retired Cognitive needs: No Hearing needs: No Vision needs: Yes (Glasses) Meds Allergies Allergy/AdvReac Type Severity Reaction Status Date / Time hydrochlorothiazide AdvReac Unknown hyponatremi Verified 04/01/24 04:14 a ENVIRONMENTAL Allergy Unknown ITCHY EYES Uncoded 04/01/24 04:14 Home Medications ?Medication ?Instructions ?Recorded ?Confirmed ?Last Taken ?Type acetaminophen 500 mg tablet 500 mg PO QPM PRN pain or fever 10/07/20 04/01/24 Unknown History (Tylenol Extra Strength) aspirin 325 mg tablet 325 mg PO QPM 10/07/20 04/01/24 03/31/24 History fluticasone propionate 50 1 spray intranasal DAILY PRN 10/07/20 04/01/24 Unknown History mcg/actuation nasal Allergy Symptoms spray,suspension (Allergy Relief (fluticasone)) loratadine 10 mg tablet (Allergy 10 mg PO DAILY 10/07/20 04/01/24 03/31/24 History Relief (loratadine)) psyllium seed (sugar) oral powder 1 tbsp PO DAILY PRN Constipation 10/07/20 04/01/24 Unknown History (Metamucil (sugar) oral powder) simvastatin 20 mg tablet 20 mg PO BEDTIME 04/01/24 04/01/24 03/31/24 History Physical Exam 2 Vital Signs and Narrative: Vital Signs: Last Vital Signs Temp 99.5 F 04/01/24 10:30 Pulse 87 04/01/24 10:30 Resp 18 04/01/24 10:30 BP 144/69 H 04/01/24 10:30 Pulse Ox 93 04/01/24 10:30 O2 Del Method Room Air 04/01/24 10:30 BMI result Body Mass Index 19.3 Const: Other: General: AO X 3, no acute distress Heent: no significant erythema of throat Resp: CTA bilateral, no wheeze, normal effort, occasional dry cough CVS: S1,S2,RRR GI: +BS, NT, no distention Skin: No rash Neuro: motor grossly intact Psych: appropriate affect Results Labs 04/01/24 04:19 04/01/24 04:19 Labs: Laboratory Results - last 24 hr 04/01/24 04:19 MCV 95.5 MCH 34.0 H MCHC 35.6 RDW 11.8 Plt Count 103 L D MPV 9.0 L Immature Gran % (Auto) 0.4 Neut % (Auto) 70.8 Lymph % (Auto) 12.2 L Bledsoe % (Auto) 16.2 H Eos % (Auto) 0.0 Baso % (Auto) 0.4 Lymph # (Auto) 0.6 L Bledsoe # (Auto) 0.8 Eos # (Auto) 0.0 Baso # (Auto) 0.0 Abs Immat Gran (auto) 0.02 Absolute Neuts (auto) 3.3 Absolute Nucleated RBC 0.000 Nucleated RBC % (auto) 0.0 Anion Gap 14 Estim Creat Clear Calc 47.4 Estimated GFR > 60 Random Glucose 93 Calcium 8.9 D Total Bilirubin 0.5 AST 33 ALT 22 Alkaline Phosphatase 57 Total Protein 6.8 Albumin 4.3 Influenza Type A (PCR) NEGATIVE Influenza Type B (PCR) NEGATIVE RSV RNA Qual (PCR) NEGATIVE SARS-CoV-2 RNA (RT-PCR) POSITIVE A S. pyogenes GrpA LORI Negative Imaging Radiologist's Impressions: Impressions Chest X-Ray 04/01/24 04:32 IMPRESSION: No acute cardiopulmonary process. Assessment and Plan (1) Physical deconditioning: Status: Acute (2) COVID-19: Status: Acute Plan 78/m with htn, hld, cva, active covid here with generalized malaise, cough, no sob, diarrhea and sore throat covid + manifested with weakness, diarrhea, cough, and sore throat -symptomatic treatment -cough medication -hydration -check strep throat, prn throat lozenge -inhalers prn diarrhea--likely from covid -check cdif, gi panel if persist thrombocytopenia--new -monitor, avoid heparin of Lovenox hyponatremia--likely related to diarrhea, mild, ivf and recheck tomorrow HTN -metoprolol, lisinopril hld, h/o cva -statin, ASA dvt prophylaxis--compression device d/t low plat Quality Stroke Does the patient have a stroke diagnosis?: No VTE Prior VTE?: No VTE Risk Level:: Medical - moderate - high VTE Device Contraindication: Treatment Not Indicated VTE Drug Contraindication: N/A - Med Ordered
[2024-04-01 12:05] LABS: Hematocrit 42.5 % (42.0-52.0); Mean Corpuscular HGB Conc 35.3 g/dl (31.0-36.0); Mean Corpuscular Hemoglobin 34.2 pg (27.0-33.0); Mean Corpuscular Volume 96.8 fL (80.0-98.0); Mean Platelet Volume 8.8 fL (9.4-12.4); Platelet Count 114 X10*3/uL (160-400); Red Blood Count 4.39 X10*6/uL (4.60-5.80); Red Cell Distribution Width 11.8 % (11.0-16.0); White Blood Count 5.6 X10*3/uL (4.8-10.8)
[2024-04-01] MEDS: Lactated Ringers 1,000 ML 100 ML IVCONT (12:09)
[2024-04-01] MEDS: guaiFENesin 100 MG/5 ML LIQUID PO ×2 (12:09→23:16)
[2024-04-01] MEDS: Calcium Carbonate 750 MG TAB.CHEW PO ×2 (12:09→20:07)
[2024-04-01] MEDS: Metoprolol Tartrate 25 MG TABLET PO (12:10)
[2024-04-01] MEDS: Loratadine 10 MG TABLET PO (12:10)
[2024-04-01] MEDS: Atorvastatin Calcium 10 MG TABLET PO (12:10)
[2024-04-01] MEDS: Acetaminophen 325 MG TABLET 650 MG PO (12:10)
[2024-04-01] MEDS: lisinopriL 10 MG TABLET PO (12:10)
[2024-04-01] MEDS: Aspirin 325 MG TABLET PO (20:06)
[2024-04-01] MEDS: Melatonin 3 MG TABLET 6 MG PO (23:16)
[2024-04-02] MEDS: Lactated Ringers 1,000 ML 100 ML IVCONT (01:22)
[2024-04-02 01:26] VITALS: BP 108/58; PULSE 68; RESP 18; TEMP 36.3; O2SAT 95
[2024-04-02 03:15] VITALS: BP 139/66; PULSE 78; RESP 18; TEMP 37; O2SAT 92
[2024-04-02] MEDS: Benzonatate 100 MG CAPSULE PO (05:45)
[2024-04-02 06:34] LABS: Hematocrit 39.9 % (42.0-52.0); Mean Corpuscular HGB Conc 35.1 g/dl (31.0-36.0); Mean Corpuscular Hemoglobin 33.4 pg (27.0-33.0); Mean Corpuscular Volume 95.2 fL (80.0-98.0); Mean Platelet Volume 8.8 fL (9.4-12.4); Platelet Count 143 X10*3/uL (160-400); Red Blood Count 4.19 X10*6/uL (4.60-5.80); Red Cell Distribution Width 11.7 % (11.0-16.0); White Blood Count 5.8 X10*3/uL (4.8-10.8)
[2024-04-02 07:11] LABS: Anion Gap 11 (12-20); Blood Urea Nitrogen 14 mg/dL (9-16); Carbon Dioxide 26 mmol/L (22-29); Chloride 99 mmol/L (96-108); Creatinine Clr Calc Pharmacy 61.9; Estimated Glomerular Filt Rate > 60; Glucose Random 88 mg/dL (60-115); Potassium 4.2 mmol/L (3.3-5.1); Sodium 132 mmol/L (135-145)
[2024-04-02 07:37] VITALS: BP 120/66; PULSE 74; RESP 18; TEMP 36.6; O2SAT 94
[2024-04-02 08:31] VITALS: BP 120/66
[2024-04-02] MEDS: lisinopriL 10 MG TABLET PO (08:31)
[2024-04-02] MEDS: 0.9 % Sodium Chloride Flush 3 ML SYRINGE IVFLUSH (08:32)
[2024-04-02] MEDS: Loratadine 10 MG TABLET PO (08:32)
[2024-04-02] MEDS: Metoprolol Tartrate 25 MG TABLET PO (08:32)
[2024-04-02] MEDS: Atorvastatin Calcium 10 MG TABLET PO (08:32)
--- NOTE | 2024-04-02 09:08 | MHC.CM.PN ---
[place] 04/02/24 DELIVERED TO PT'S [facility] AT 8:37AM #ON FILE, [facility] REPORTS PT AND [facility] LIVE TOGETHER, PT DOES NOT USE ANY DME/SERVICES, PT INDEP W/ANY ASSISTANCE NEEDED PROVIDED BY , [facility] BELIEVES PT WOULD NOT BE AGREEABLE TO STR HOWEVER OPEN TO HOME PT, NO PREFERENCE ON [facility] AND AGREEABLE TO REFERRAL TO [facility]. PCP/HCP ON FILE VERIFIED.
--- NOTE | 2024-04-02 10:46 | P.DS_ITS ---
DS: Providers Provider Date of Service: 04/02/24 Date of admission: 04/01/24 11:13 Primary care physician: Vinny Flores MD DS: Diagnosis Discharge Diagnosis (1) Physical deconditioning: Status: Acute (2) COVID-19: Status: Acute DS: Summary Hospital Course Hospital Course: admission hpi Chief Complaint: sob, weakness, +covid since 03/29 An 78-year-old male with a history of hypertension, hyperlipidemia, and a past cerebrovascular accident presents with weakness, cough, sore throat and diarrhea. He was diagnosed with COVID-19 on 03/29 and has been feeling generally unwell, which worsened last night with the onset of diarrhea, cough, and a sore throat. He denies shortness of breath but has had a poor appetite. He is not hypoxic, his chest X-ray shows no acute findings, his COVID-19 test is still po sitive, and his electrolytes are within normal limits. Hospital course: He presented with weakness ongoing since he had covid and having diarrhea. He had no difficulty breathing but was having cough. He was hydrated and observed overnight and is doing much better. cough is better, no diarrhea. Time Attestation Discharge Coordination Time (in mins): 35 Quality: Safe Use of Opioids Does Pt have an Active Cancer Diagnosis on the Problem List?: No Quality: Stroke Does the patient have a stroke diagnosis?: No Physical Exam Vital Signs: Vital Signs: Last Vital Signs Temp 97.8 F 04/02/24 07:37 Pulse 74 04/02/24 07:37 Resp 18 04/02/24 07:37 BP 120/66 04/02/24 08:31 Pulse Ox 94 04/02/24 07:37 O2 Del Method Room Air 04/02/24 07:37 BMI result Body Mass Index 19.8 General: AO X 3, no acute distress Resp: CTA bilateral CVS: S1,S2,RRR GI: +BS, NT, no distention Skin: No rash Neuro: motor grossly intact Psych: appropriate affect DS: Data Data Completed and Pending Labs on day of discharge: Laboratory Results - last 24 hr 04/01/24 04/02/24 11:49 05:47 WBC 5.6 5.8 RBC 4.39 L 4.19 L Hgb 15.0 14.0 Hct 42.5 39.9 L MCV 96.8 95.2 MCH 34.2 H 33.4 H MCHC 35.3 35.1 RDW 11.8 11.7 Plt Count 114 L 143 L D MPV 8.8 L 8.8 L Absolute Nucleated RBC 0.000 0.000 Nucleated RBC % (auto) 0.0 0.0 Sodium 132 L Potassium 4.2 Chloride 99 Carbon Dioxide 26 Anion Gap 11 L BUN 14 Creatinine 0.89 Estim Creat Clear Calc 61.9 Estimated GFR > 60 Random Glucose 88 Calcium 9.0 Discharge Plan Discharge Anticipated Discharge Date/Time: 04/02/24 10:45 Patient Disposition: Home, Self-Care Discharge Diagnosis: deconditioning from covid, Referrals: Vinny Flores MD [Primary Care Provider] - 1 Week Discharge Medications: Continued metoprolol tartrate 25 mg tablet 25 mg PO DAILY Qty: 90 0RF lisinopril 10 mg tablet 10 mg PO DAILY Qty: 90 0RF Rx Instructions: needs an appointment for further refills simvastatin 20 mg tablet 20 mg PO BEDTIME aspirin 325 mg tablet 325 mg PO BEDTIME acetaminophen [Tylenol Extra Strength] 500 mg tablet 500 mg PO BEDTIME PRN (Reason: pain or fever) Metamucil (sugar) Powder 1 tbsp PO DAILY PRN (Reason: Constipation) loratadine [Allergy Relief (loratadine)] 10 mg tablet 10 mg PO DAILY fluticasone propionate [Allergy Relief (fluticasone)] 50 mcg/actuation spray,suspension 1 spray intranasal DAILY PRN (Reason: Allergy Symptoms) Rx Instructions: administer into each nostril Diet: Advance to usual diet Activity on Discharge: As tolerated Stand Alone Forms: Patient Portal Discharge page Print Language: Tristanian Care Plan Goals: full recovery from covid Health Concerns: covid, weakness from covid diarrhea from covid resolved Plan of Treatment: rest,stay hydrated, follow up with your Doctor in a week take cough medication as needed for cough Assessment: see above
== END 2024-04-02 15:13 | disposition home or self-care (01) ==
LOC: HO.ED 08:25 → HO.EDOVER 11:21 → HO.IMC 12:03
PROVIDERS: Internal Medicine; Admitting Provider Internal Medicine; Emergency Provider Emergency Medicine; PCP Internal Medicine; Visit Provider Internal Medicine
DX: R53.81 Other malaise (principal); U07.1 COVID-19; R06.02 Shortness of breath; I10 Essential (primary) hypertension; E78.5 Hyperlipidemia, unspecified; R05.9 Cough, unspecified; R53.83 Other fatigue; R19.7 Diarrhea, unspecified; Z79.899 Other long term (current) drug therapy; Z86.73 Personal history of transient ischemic attack (TIA), and cerebral infarction without residual deficits
CPT/HCPCS: 0241U; 36415; 71045; 80048; 80053; 85025; 85027; 87651; 93005; 94640; 96360; 96361; 99222; 99285; J7120

== ENCOUNTER → 2024-04-01 11:13 | Outpatient (BNV) | payer MEDICARE, SELFPAY | PROVIDERS: Admitting Provider Internal Medicine; Emergency Provider Emergency Medicine; PCP Internal Medicine; Visit Provider Internal Medicine | DX: R53.81 Other malaise (principal); U07.1 COVID-19 | CPT/HCPCS: 99222; 99239 ==

== ENCOUNTER 2024-04-06 10:06 | Outpatient (AMB) | payer MEDICARE, SELFPAY ==
[2024-04-06 10:13] VITALS: BP 152/72; PULSE 65; O2SAT 98; BMI 20.1
--- NOTE | 2024-04-06 10:13 | A.OFFPC_ITS ---
Vital Signs 04/06/24 10:13 Height 6 ft Weight 148 lb 2 oz BMI 20.1 BP 152/72 H Blood Pressure Location Lt brachial Position Sitting Pulse 65 Pulse Source Pulse Oximeter Pulse Oximetry (%) 98 Oxygen Delivery Method Room Air Intake Visit Reasons: tcm 04/02 discharge date COVID [employer] Motorcycle [employer] Required: No Accompanied by: Self / Same As Patient Allergies hydrochlorothiazide Adverse Reaction (Unknown, Verified 04/06/24 10:17) hyponatremia ENVIRONMENTAL Allergy (Unknown, Uncoded 04/06/24 10:17) ITCHY EYES Tobacco use date assessed: 02/02/24 Fall risk assessment: No Falls in past year Last assessed Fall Risk: 04/06/24 Dental Screening Dental Screen Date: 02/02/24 HPI HPI Comments History of Present Illness Details 78 y/o male patient who presents to the clinic today for HDF. He was admitted at [facility] on 04/01 due to COVID Infection and was discharged 04/02 home in stable Condition. Today reports still feeling weak and fatigued. Denies SOB, wheezing or chest pains. Denies fevers, chills, Nausea or vomiting. Reports loss of taste and unable to enjoy his meals. [facility] Medical History History of CVA (cerebrovascular accident) Allergic rhinitis Pure hypercholesterolemia, unspecified Essential (primary) hypertension Surgical History History of surgery of head History of appendectomy Family History Father No problems noted. Mother No problems noted. Daughter No problems noted. Daughter No problems noted. Social History Household Members: Spouse Housing: House Do you presently have visiting nurse or other home services: No Alcohol intake: current Alcohol intake frequency: holidays/special occasions only Patient Tobacco Use Status: Never used Tobacco e-Cigarette/Vaping Use: Never Used Second Hand Smoke Exposure: No Advance Directives Date on File: 04/01/24 service: Yes Current occupational status: retired Cognitive needs: No Hearing needs: No Vision needs: Yes (Glasses) Questionnaire Thrive Questionnaire Date Thrive assessed: 04/02/24 EMANI-7 AMB Questionnaire EMANI-7 Date EMANI - 7 assessed: 02/02/24 Source: Developed by Drs. Diallo Randhawa, Shoshana Childress, Papa Elder and colleagues, with an educational jessica from [employer]. Review of Systems Const All systems reviewed & are unremarkable except as noted in HPI and below Physical exam (Primary Care) Vital Signs: Last Vital Signs Pulse 65 04/06/24 10:13 BP 152/72 H 04/06/24 10:13 Pulse Ox 98 04/06/24 10:13 Oxygen Delivery Method Room Air 04/06/24 10:13 BMI result Body Mass Index 20.1 Tobacco/Smoking Status: Tobacco use Status Tobacco use date assessed 02/02/24 04/06/24 10:15 Patient Tobacco Use Status Never used Tobacco 04/06/24 10:15 e-Cigarette/Vaping Use Never Used 04/06/24 10:15 Thrive Assessment: Date of Thrive Assessment Date Thrive assessed 04/02/24 04/06/24 10:15 Const General: cooperative and no acute distress Orientation/consciousness: patient oriented x3 Resp Effort & Inspection: normal respiratory effort, able to speak in complete sentences, no audible wheezes and no cough Auscultation: clear to auscultation bilaterally, no crackles, no rales, no rhonchi and no wheezes Cardio Heart sounds: S1 normal heart sound present and S2 normal heart sound present Neuro General: patient oriented x3, gait normal and moves all extremities Psych Speech and movement: Normal speech and movement present Vital Signs: Last Vital Signs Pulse 65 04/06/24 10:13 BP 152/72 H 04/06/24 10:13 Pulse Ox 98 04/06/24 10:13 Oxygen Delivery Method Room Air 04/06/24 10:13 BMI result Body Mass Index 20.1 Const General: cooperative and no acute distress Orientation/consciousness: patient oriented x3 Resp Effort & Inspection: normal respiratory effort, able to speak in complete sentences, no audible wheezes and no cough Auscultation: clear to auscultation bilaterally, no crackles, no rales, no rhonchi and no wheezes Cardio Heart sounds: S1 normal heart sound present and S2 normal heart sound present Neuro General: patient oriented x3, gait normal and moves all extremities Psych Speech and movement: Normal speech and movement present Assessment and Plan Assessment & Plan (1) COVID-19: Code(s): U07.1 - COVID-19 Plan: Rest and hydrate well Acetaminophen for pain relief Educated patient on ways to recover sense of taste such as: Peanut butter, G refugio, peppermint, and other spices. Lemon and other sour and tart foods.Dark chocolate and other bitter foods. Fresh herbs like cilantro and romel. Strong seasonings like garlic, onion, and chili powder. Coding Level of Care Code Est Pt Level 4 (13553) Diagnoses COVID-19 U07.1 Time Spent (min) 20 Comment Spent on reviewing hospital notes and Patient education
== END 2024-04-06 10:38 | disposition home or self-care (01) ==
PROVIDERS: PCP Internal Medicine; Visit Provider Nurse Practitioner Family
DX: U07.1 COVID-19 (principal)
CPT/HCPCS: 99214

== ENCOUNTER 2024-08-02 09:24 | Outpatient (AMB) | payer MEDICARE, SELFPAY ==
[2024-08-02 09:39] VITALS: BP 132/70; PULSE 65; O2SAT 97; BMI 20.1
--- NOTE | 2024-08-02 09:39 | MHC.PC.OV ---
Vital Signs 08/02/24 09:39 Height 6 ft Weight 148 lb BMI 20.1 BP 132/70 Blood Pressure Location Lt brachial Position Sitting Pulse 65 Pulse Source Pulse Oximeter Pulse Oximetry (%) 97 Oxygen Delivery Method Room Air Intake Visit Reasons: Annual exam Intake Note: Patient is here today for a physical. Property Controller Required: No Inspector Outside Production: Not Required per policy Accompanied by: Self / Same As Patient Allergies hydrochlorothiazide Adverse Reaction (Unknown, Verified 08/02/24 10:01) hyponatremia ENVIRONMENTAL Allergy (Unknown, Uncoded 08/02/24 10:01) ITCHY EYES Medication List - Last Reconciled 08/02/24 by Vinny Flores MD acetaminophen (Tylenol Extra Strength) 500 mg PO BEDTIME PRN aspirin 325 mg PO BEDTIME fluticasone propionate 50 mcg/actuation (Allergy Relief (fluticasone)) 1 spray intranasal DAILY PRN lisinopril 10 mg PO DAILY loratadine (Allergy Relief (loratadine)) 10 mg PO DAILY metoprolol tartrate 25 mg PO DAILY psyllium seed (sugar) (Metamucil (sugar) oral powder) 1 tbsp PO DAILY PRN simvastatin 20 mg PO BEDTIME Tobacco use date assessed: 08/02/24 Fall risk assessment: No Falls in past year Last assessed Fall Risk: 08/02/24 Dental Screening Dental Screen Date: 02/02/24 [facility] Medical History History of CVA (cerebrovascular accident) Allergic rhinitis Pure hypercholesterolemia, unspecified Essential (primary) hypertension Surgical History History of surgery of head History of appendectomy Family History Father No problems noted. Mother No problems noted. Daughter No problems noted. Daughter No problems noted. Social History Household Members: Spouse Housing: House Do you presently have visiting nurse or other home services: No Alcohol intake: current Alcohol intake frequency: holidays/special occasions only Patient Tobacco Use Status: Never used Tobacco e-Cigarette/Vaping Use: Never Used Second Hand Smoke Exposure: No Advance Directives Date on File: 04/01/24 service: Yes Current occupational status: retired Cognitive needs: No Hearing needs: No Vision needs: Yes (Glasses) Questionnaire PHQ-9 Over the last 2 weeks, how often have you been bothered by any of the following problems? 1. Little interest or pleasure in doing things: not at all 2. Feeling down, depressed, or hopeless: not at all 3. Trouble falling or staying asleep, or sleeping too much: not at all 4. Feeling tired or having little energy: not at all 5. Poor appetite or overeating: not at all 6. Feeling bad about yourself - or that you are a failure or have let yourself or your family down: not at all 7. Trouble concentrating on things, such as reading the newspaper or watching television: not at all 8. Moving or speaking so slowly that other people could have noticed. Or the opposite - being so fidgety or restless that you have been moving around a lot more than usual: not at all 9. Thoughts that you would be better off or of hurting yourself in some way: not at all Total score: 0 Source: Developed by Drs. Diallo Randhawa, Shoshana Childress, Papa Elder and colleagues, with an educational jessica from [employer]. Thrive Questionnaire Date Thrive assessed: 08/02/24 I am a: Patient What is your living situation today?: I have a steady place to live THRIVE Score: 0 EMANI-7 AMB Questionnaire EMANI-7 Date EMANI - 7 assessed: 02/02/24 Source: Developed by Drs. Diallo Randhawa, Shoshana Childress, Papa Elder and colleagues, with an educational jessica from [employer]. Physical exam (Primary Care) Vital Signs: Last Vital Signs Pulse 65 08/02/24 09:39 BP 132/70 08/02/24 09:39 Pulse Ox 97 08/02/24 09:39 Oxygen Delivery Method Room Air 08/02/24 09:39 BMI result Body Mass Index 20.1 Tobacco/Smoking Status: Tobacco use Status Tobacco use date assessed 08/02/24 08/02/24 09:43 Patient Tobacco Use Status Never used Tobacco 08/02/24 09:43 e-Cigarette/Vaping Use Never Used 08/02/24 09:43 PHQ-9: PHQ-9 Score PHQ-9: Total score 0 08/02/24 09:43 Thrive Assessment: Date of Thrive Assessment Date Thrive assessed 08/02/24 08/02/24 09:43 Coding Level of Care Code Est Pt Prev Care >65y(41883) Diagnoses Essential (primary) hypertension I10 Pure hypercholesterolemia, unspecified E78.00 Allergic rhinitis J30.9 Annual physical exam Z00. Assessment & Plan Assessment & Plan (1) Essential (primary) hypertension: Code(s): I10 - Essential (primary) hypertension Category: Medical Plan: Blood pressure in range. Continue current medications (2) Pure hypercholesterolemia, unspecified: Code(s): E78.00 - Pure hypercholesterolemia, unspecified Category: Medical Plan: LDL in range (3) Allergic rhinitis: Code(s): J30.9 - Allergic rhinitis, unspecified Category: Medical Plan: Continue flonase. (4) Annual physical exam: Code(s): Z00.00 - Encounter for general adult medical examination without abnormal findings Category: Medical Plan: History of Present Illness Patient presents for a routine annual exam. The patient is an 78-year-old male presenting with chronic nasal congestion. He has noticed that the congestion tends to occur particularly when he sits down to eat, and it sometimes lessens when using a salt shaker, although he notes that might not be beneficial. The patient uses saline and a Elisa Pot for alleviating symptoms and has tried Flonase, which offers occasional relief. Mucus secretion is described as thicker in the morning. Blood work was done in March and returned normal results. He is on a regular medication regimen that he adheres to. Social History - Reads literature; current interest in historical novels. - Comments on family involvement with services, mentioning a member currently deployed in [place]. - He does not want to receive the COVID vaccine due to his previous severe experience with the illness. Review of Systems - General: Denies pain, except minor discomfort. - Respiratory: Reports nasal congestion particularly when eating and in the morning. - Allergic/Immunologic: Reports using Flonase and saline for nasal congestion. Physical Exam General: Cooperative and healthy appearing Nutritional Appearance: Well nourished Orientation/consciousness: Patient oriented x3 Limitations: No limitations Head: Normal to inspection General: Appearance normal, both eyes and all related structures Neck: Normal visual inspection Chest: Normal palpation of entire chest wall Respiratory: Normal respiratory effort Neurology: Patient oriented x3 Results - Blood work completed in March: Normal results. Plan - Encourage use of saline irrigation and consider continuing Flonase if slight improvement is noted. - No new treatments for nasal congestion required at this time, suggest continued monitoring. Patient was informed and verbally consented to the use of an ambient scribe for clinic note documentation during this visit. Discussion Notes I explained to the patient the nature of his chronic nasal congestion and discussed possible contributing factors, such as environmental changes and dietary habits. We reviewed his current management strategies, including saline rinses and Flonase, which he reports as providing marginal relief. I confirmed there is no immediate need for further intervention, but suggested using the spray an hour before meals to potentially reduce symptoms. We also touched upon his adverse reaction to previous COVID-19 illness and his decision not to receive the COVID vaccine, noting understanding of his reasoning. Patient Instructions - Continue using saline rinse and Flonase as needed. - Use nasal spray one hour before meals to help reduce congestion. - No need for immediate action if symptoms are stable, continue current management strategies. Medications: Refilled metoprolol tartrate 25 mg PO DAILY 90 tabs 0RF
== END 2024-08-02 10:03 | disposition home or self-care (01) ==
PROVIDERS: PCP Internal Medicine; Visit Provider Internal Medicine
DX: I10 Essential (primary) hypertension (principal); E78.00 Pure hypercholesterolemia, unspecified; J30.9 Allergic rhinitis, unspecified; Z00.00 Encounter for general adult medical examination without abnormal findings

== ENCOUNTER → 2024-08-02 09:24 | Outpatient (BNVA) | payer MEDICARE, SELFPAY | PROVIDERS: PCP Internal Medicine; Visit Provider Internal Medicine | DX: Z00.00 Encounter for general adult medical examination without abnormal findings (principal); I10 Essential (primary) hypertension; E78.00 Pure hypercholesterolemia, unspecified; J30.9 Allergic rhinitis, unspecified | CPT/HCPCS: 96127; 99397 ==

== ENCOUNTER 2024-11-29 09:28 | Outpatient (AMB) | payer MEDICARE, SELFPAY ==
--- NOTE | 2024-11-29 09:33 | MHC.PC.OV ---
Vital Signs 11/29/24 09:35 Height 6 ft Weight 152 lb 6 oz BMI 20.7 BP 140/80 H Blood Pressure Location Lt brachial Position Sitting Pulse 70 Pulse Source Pulse Oximeter Temp 97.5 F Temp Source Temporal Artery Scan Pulse Oximetry (%) 97 Oxygen Delivery Method Room Air Intake Visit Reasons: 3 month f/u Intake Note: Patient is here to follow up on HTN, Hypercholesterolemia. Night Cleaner Required: No Cleaning Associate: Not Required per policy Accompanied by: Self / Same As Patient Allergies hydrochlorothiazide Adverse Reaction (Unknown, Verified 12/02/24 07:39) hyponatremia ENVIRONMENTAL Allergy (Unknown, Uncoded 12/02/24 07:39) ITCHY EYES Medication List - Last Reconciled 12/02/24 by Vinny Flores MD acetaminophen (Tylenol Extra Strength) 500 mg PO BEDTIME PRN aspirin 325 mg PO BEDTIME fluticasone propionate 50 mcg/actuation (Allergy Relief (fluticasone)) 1 spray intranasal DAILY PRN lisinopril 10 mg PO DAILY loratadine (Allergy Relief (loratadine)) 10 mg PO DAILY metoprolol tartrate 25 mg PO DAILY psyllium seed (sugar) (Metamucil (sugar) oral powder) 1 tbsp PO DAILY PRN simvastatin 20 mg PO BEDTIME Tobacco use date assessed: 11/29/24 Fall risk assessment: No Falls in past year Last assessed Fall Risk: 11/29/24 Dental Screening Dental Screen Date: 11/29/24 Did you have a dental visit in the last 12 months?: Yes Did you have a dental problem in the last 6 months where you did not have access to dental care?: No Was dental information given to patient?: Patient has dentist (Dentures) [facility] Medical History History of CVA (cerebrovascular accident) Allergic rhinitis Pure hypercholesterolemia, unspecified Essential (primary) hypertension Surgical History History of colonoscopy (~11/05/15) History of surgery of head History of appendectomy Family History Father No problems noted. Mother No problems noted. Daughter No problems noted. Daughter No problems noted. Social History Household Members: Spouse Housing: House Do you presently have visiting nurse or other home services: No Alcohol intake: current Alcohol intake frequency: holidays/special occasions only Patient Tobacco Use Status: Never used Tobacco e-Cigarette/Vaping Use: Never Used Second Hand Smoke Exposure: No Advance Directives Date on File: 04/01/24 service: Yes Current occupational status: retired Cognitive needs: No Hearing needs: No Vision needs: Yes (Glasses) Questionnaire PHQ-9 Over the last 2 weeks, how often have you been bothered by any of the following problems? 1. Little interest or pleasure in doing things: not at all 2. Feeling down, depressed, or hopeless: not at all 3. Trouble falling or staying asleep, or sleeping too much: not at all 4. Feeling tired or having little energy: not at all 5. Poor appetite or overeating: not at all 6. Feeling bad about yourself - or that you are a failure or have let yourself or your family down: not at all 7. Trouble concentrating on things, such as reading the newspaper or watching television: not at all 8. Moving or speaking so slowly that other people could have noticed. Or the opposite - being so fidgety or restless that you have been moving around a lot more than usual: not at all 9. Thoughts that you would be better off or of hurting yourself in some way: not at all Total score: 0 Depression Screening Interpretation: Negative Depression Screening Done: Yes Source: Developed by Drs. Diallo Randhawa, Shoshana Childress, Papa Elder and colleagues, with an educational jessica from [employer]. Thrive Questionnaire Date Thrive assessed: 11/29/24 Currently or been in a relationship where the following occur: No concerns reported THRIVE Score: 0 AUDIT C Alcohol Use Questionnaire (AUDIT-C) 1. How often do you have a drink containing alcohol?: 2-4 times a month 2. How many drinks containing alcohol do you have on a typical day when you are drinking?: 1 or 2 Total Score: 2 EMANI-7 AMB Questionnaire EMANI-7 Date EMANI - 7 assessed: 11/29/24 Feeling nervous, anxious, or on edge: 0 = Not at all Not being able to stop or control worryin = Not at all Worrying too much about different things: 0 = Not at all Trouble relaxin = Not at all Being so restless that it is hard to sit still: 0 = Not at all Becoming easily annoyed or irritable: 0 = Not at all Feeling afraid as if something awful might happen: 0 = Not at all Total EMANI-7 score (0-4 normal; 5-9 mild; 10-14 moderate; 15-21 severe): 0 Source: Developed by Drs. Diallo Randhawa, Shoshana Childress, Papa Elder and colleagues, with an educational jessica from [employer]. Physical exam (Primary Care) Vital Signs: Last Vital Signs Temp 97.5 F 11/29/24 09:35 Pulse 70 11/29/24 09:35 BP 140/80 H 11/29/24 09:35 Pulse Ox 97 11/29/24 09:35 Oxygen Delivery Method Room Air 11/29/24 09:35 Care Plan Goal for BP management: BP is in range. BMI result Body Mass Index 20.7 Tobacco/Smoking Status: Tobacco use Status Tobacco use date assessed 11/29/24 11/29/24 09:39 Patient Tobacco Use Status Never used Tobacco 11/29/24 09:33 e-Cigarette/Vaping Use Never Used 11/29/24 09:33 PHQ-9: PHQ-9 Score PHQ-9: Total score 0 11/29/24 09:39 Depression Screening Interpretation: Negative Thrive Assessment: Date of Thrive Assessment Date Thrive assessed 11/29/24 11/29/24 09:33 Currently or been in a relationship where the following occur: No concerns reported Advance Care Planning discussion: Exists, not on file Date of discussion: 11/29/24 Time spent: 1-15 minutes, not on file Actual minutes spent: 5 Coding Level of Care Code Est Pt Level 4 (95231) Complex EM visit Add On G2211 Diagnoses Essential (primary) hypertension I10 Allergic rhinitis J30.9 Additional Codes Vital Signs *Quality* - Advance Care Planning discussion: Exists, not on file ([id number]) Vital Signs *Quality* - Time spent: 1-15 minutes, not on file ([id number]) Assessment & Plan Assessment & Plan (1) Essential (primary) hypertension: Code(s): I10 - Essential (primary) hypertension Category: Medical Plan: Blood pressure is in range. Continue current medications. (2) Allergic rhinitis: Code(s): J30.9 - Allergic rhinitis, unspecified Category: Medical Plan: Condition to be managed with nasal decongestant and systemic medications. Plan History of Present Illness The patient is an 79-year-old male presenting for a wellness visit, with ongoing issues regarding heartburn and seasonal allergies. Heartburn occurs primarily in the evening, particularly post-supper when lying down. The patient attempts to manage the symptoms with non-prescription antacids, consuming one or two tablets as needed. Dietary habits affecting heartburn were discussed, particularly around the timing of meals and ice cream consumption. He also reports congestion due to seasonal allergies, indicative of seasonal allergic rhinitis. Both conditions are chronic issues for him, with dietary and lifestyle modifications attempted to manage symptoms. Social History - Reports watching television frequently, suggesting a sedentary lifestyle in the evenings. - Concerned about dietary habits, specifically frequent consumption of ice cream which he suspects may impact heart health negatively. - Sleeps around 10 PM after dinner at 5 PM, indicating a structured routine. Review of Systems - Gastrointestinal: Reports heartburn symptoms primarily occurring in the evening. - Respiratory: Denies recent respiratory symptoms but acknowledges seasonal allergies causing congestion. Physical Exam General: Cooperative and healthy appearing Nutritional Appearance: Well nourished Orientation/consciousness: Patient oriented x3 Limitations: No limitations Head: Normal to inspection General: Appearance normal, both eyes and all related structures Neck: Normal visual inspection Chest: Normal palpation of entire chest wall Respiratory: Congestion noted ormal respiratory effort Neurology: Patient oriented x3 Results Plan For gastroesophageal reflux disease GERD), I discussed lifestyle and dietary modifications. Emphasized were the avoidance of irritants such as ice cream, elevating the head during sleep, and refraining from eating close to bedtime. Seasonal allergies were managed through avoidance and lifestyle recommendations, with a focus on maintaining symptom control through practical behavioral adjustments discussed during the visit. Patient was informed and verbally consented to the use of an ambient scribe for clinic note documentation during this visit. Discussion Notes During our consultation, I discussed the possible benefits of behavioral changes to manage gastroesophageal reflux disease (GERD), stressing the importance of lifestyle modifications such as elevating the head of the bed, and avoiding irritants and late meals. We considered how ice cream consumption might play a role in symptom aggravation. For seasonal allergic rhinitis, I provided guidance on avoiding known allergens as part of environmental control. We agreed on monitoring symptoms closely and scheduled a follow-up in six months to reassess his conditions. Patient Instructions - Avoid eating large meals or irritants like ice cream close to bedtime. - Elevate the head of your bed to alleviate night-time heartburn. - Monitor and manage exposure to allergens to control allergy symptoms. - Return for a scheduled follow-up in six months. - Contact me if there are any new or worsening symptoms. - Enjoy Easter and follow the discussed plans. Medications: Refilled lisinopril needs an appointment for further refills 10 mg PO DAILY 90 tabs 0RF
[2024-11-29 09:35] VITALS: BP 140/80; PULSE 70; TEMP 36.4; O2SAT 97; BMI 20.7
== END 2024-11-29 10:33 | disposition home or self-care (01) ==
LOC: HO.HMCH 09:29
PROVIDERS: PCP Internal Medicine; Visit Provider Internal Medicine
DX: I10 Essential (primary) hypertension (principal); J30.9 Allergic rhinitis, unspecified; Z00.00 Encounter for general adult medical examination without abnormal findings

== ENCOUNTER → 2024-11-29 09:28 | Outpatient (BNVA) | payer MEDICARE, SELFPAY | PROVIDERS: PCP Internal Medicine; Visit Provider Internal Medicine | DX: I10 Essential (primary) hypertension (principal); J30.9 Allergic rhinitis, unspecified; K21.9 Gastro-esophageal reflux disease without esophagitis | CPT/HCPCS: 96127; 99212 ==

== ENCOUNTER 2025-02-16 21:06 | Emergency (ER) | payer MEDICARE, SELFPAY ==
--- NOTE | ~2025-02-16 | CT_ITS ---
CLINICAL HISTORY: fall, facial injury CT maxillofacial without contrast Comparison: None Findings: There appears to be a subtle right orbital floor fracture with minimal right retro-orbital gas. The left orbit appears intact. There are multiple fractures of the right maxillary sinus wall with a possible subtle fracture of the left inferior maxillary sinus on axial image number 121 of series 18. There are fractures of the left medial and lateral pterygoid processes. There also appear to be subtle fractures of the medial and lateral right pterygoid processes. Probable subtle left nasal bone fracture. Temporomandibular joints intact. Moderate contusion present at the right cheek soft tissues. A moderate amount of gas is identified throughout the right facial soft tissues. Mild fluid present within the right maxillary sinus with minimal fluid at the left maxillary sinus. Moderate mucosal thickening present throughout the ethmoid air cells. Minimal mucosal thickening present at the inferior aspects of the bilateral frontal sinuses and anterior aspects of the bilateral sphenoid sinuses. The bilateral mastoid air cells appear clear. Impression: 1. Right orbital floor fracture present with minimal right retro-orbital gas adjacent to the fracture site. The left orbit appears intact. The bilateral globes appear intact. 2. Multiple fractures of the right maxillary sinus wall present with a probable subtle fracture of the inferior aspect of the left maxillary sinus. Fluid is identified within the bilateral maxillary sinuses, more prominent on the right, suggesting blood products. 3. Fractures of the bilateral pterygoid processes with a probable subtle left nasal bone fracture. 4. Moderate gas identified throughout the right facial soft tissues, consistent with posttraumatic change. This document has been electronically signed by: Myke Calhoun MD on 02/17/2025 00:28:59
--- NOTE | ~2025-02-16 | CT_ITS ---
CLINICAL HISTORY: fall, head injury, neck tenderness CT cervical spine without contrast Comparison: None Findings: Minimal nonspecific linear opacity partially visualized at the right lung apex. Emphysema present. There is grade 1 anterolisthesis of C3 on C4 and also of C4 on C5. Moderate degenerative endplate changes are present at the cervical spine, greatest inferiorly. Multilevel bilateral degenerative facet arthropathy also present at the cervical spine. Irregular calcification identified along the superior aspect of the dens, favored to represent sequela of degenerative change or old trauma. No acute fractures or dislocations are identified at the cervical spine. Impression: 1. No acute fracture or dislocation injury identified at the cervical spine. This document has been electronically signed by: Myke Calhoun MD on 02/17/2025 00:17:55
--- NOTE | ~2025-02-16 | CT_ITS ---
CLINICAL HISTORY: fall, head trauma CT head without contrast Comparison: None provided. Findings: Mild motion artifact present. No intracranial mass, midline shift, hydrocephalus, or acute hemorrhage. There is generalized cerebral volume loss. Moderate nonspecific periventricular and subcortical white matter changes are identified, which may be seen in the setting of chronic small vessel ischemic disease. Moderate mucosal thickening identified within the ethmoid air cells with mild fluid of the right maxillary sinus and minimal fluid at the left maxillary sinus. The bilateral mastoid air cells appear clear. No acute skull fracture. Soft tissue gas identified within the right facial region. Facial bone fractures present. Impression: 1. No acute intracranial abnormality. No acute intracranial hemorrhage. This document has been electronically signed by: Myke Calhoun MD on 02/17/2025 00:13:14
[2025-02-16 21:11] VITALS: BP 179/65; PULSE 78; RESP 18; TEMP 36.5; O2SAT 97; BMI 27.7
[2025-02-16 21:35] LABS: MANUAL DIFF FLAG NO
[2025-02-16 21:37] LABS: Hematocrit 41.5 % (42.0-52.0); Hemoglobin 14.7 g/dl (14.0-18.0); Imm Gran Abs Auto 0.05 X10*3/uL (0.00-0.03); Imm Gran Pct Auto 0.7 % (0.0-0.4); Lymphocytes Absolute Auto 1.3 X10*3/uL (1.2-4.9); Mean Corpuscular HGB Conc 35.4 g/dl (31.0-36.0); Mean Corpuscular Hemoglobin 33.6 pg (27.0-33.0); Mean Corpuscular Volume 94.7 fL (80.0-98.0); NRBC Abs Auto 0.000 X10*3/uL (0.0-0.012); NRBC Pct Auto 0.0 /100WBC (0.0-0.2); Platelet Count 148 X10*3/uL (160-400); Red Blood Count 4.38 X10*6/uL (4.60-5.80); White Blood Count 7.6 X10*3/uL (4.8-10.8)
[2025-02-16 21:54] LABS: Alanine Aminotransferase 16 U/L (0-40); Albumin Level 4.6 g/dL (3.5-5.0); Alkaline Phosphatase 75 U/L (39-117); Anion Gap 12 (12-20); Aspartate Amino Transferase 27 U/L (5-37); Blood Urea Nitrogen 18 mg/dL (9-16); Calcium 9.0 mg/dL (8.4-10.2); Carbon Dioxide 26 mmol/L (22-29); Chloride 100 mmol/L (96-108); Creatinine Clr Calc Pharmacy 55.0; Estimated Glomerular Filt Rate > 60; Potassium 4.1 mmol/L (3.3-5.1); Sodium 134 mmol/L (135-145); Total Protein 7.1 g/dL (6.5-8.0)
--- NOTE | 2025-02-16 22:29 | ED.GENADULT ---
HPI - General Adult General Chief complaint: Fall Stated complaint: fell,face pain,bloody nose Time Seen by Provider: 02/16/25 22:29 History of Present Illness ED Provider: Hollis BENNETT narrative: The patient is an 79-year-old male who was visiting at a friend's house. He was leaving. As he was saying goodbye he did not realize there was a dog on the floor and he tripped over the dog and fell forward landing on his face. He felt a crunch on his nose and face. He did not have loss of consciousness. He had bleeding from his nose. He had to his lips. His daughter drove him to the hospital. He has on a full-strength aspirin daily. No anticoagulation. Related Data Home Medications ?Medication ?Instructions ?Recorded ?Confirmed acetaminophen 500 mg tablet 500 mg PO BEDTIME PRN pain or fever 10/07/20 12/02/24 (Tylenol Extra Strength) aspirin 325 mg tablet 325 mg PO BEDTIME 10/07/20 12/02/24 fluticasone propionate 50 1 spray intranasal DAILY PRN 10/07/20 12/02/24 mcg/actuation nasal Allergy Symptoms spray,suspension (Allergy Relief (fluticasone)) loratadine 10 mg tablet (Allergy 10 mg PO DAILY 10/07/20 12/02/24 Relief (loratadine)) psyllium seed (sugar) oral powder 1 tbsp PO DAILY PRN Constipation 10/07/20 12/02/24 (Metamucil (sugar) oral powder) Previous Rx's ?Medication ?Instructions ?Recorded lisinopril 10 mg tablet 10 mg PO DAILY #90 tabs 11/30/24 simvastatin 20 mg tablet 20 mg PO BEDTIME #90 tabs 12/14/24 metoprolol tartrate 25 mg tablet 25 mg PO DAILY #90 tabs 02/01/25 amoxicillin 875 mg-potassium 1 tab PO BID #16 tabs 02/17/25 clavulanate 125 mg tablet Allergies Allergy/AdvReac Type Severity Reaction Status Date / Time hydrochlorothiazide AdvReac Unknown hyponatremi Verified 02/16/25 21:14 a ENVIRONMENTAL Allergy Unknown ITCHY EYES Uncoded 02/16/25 21:14 Review of Systems Review of Systems: Yes all other systems are reviewed and are negative PMFSH Past Medical History Medical History History of CVA (cerebrovascular accident) Allergic rhinitis Pure hypercholesterolemia, unspecified Essential (primary) hypertension Surgical History History of colonoscopy (~11/05/15) History of surgery of head History of appendectomy Family History Family History Father No problems noted. Mother No problems noted. Daughter No problems noted. Daughter No problems noted. Social History Social History Household Members: Spouse Housing: House Do you presently have visiting nurse or other home services: No Alcohol intake: current Alcohol intake frequency: does not drink Patient Tobacco Use Status: Never used Tobacco e-Cigarette/Vaping Use: Never Used Second Hand Smoke Exposure: No Advance Directives Date on File: 04/01/24 service: Yes Current occupational status: retired Cognitive needs: No Hearing needs: No Vision needs: Yes (Glasses) Physical Exam ED Vital Signs: Vital Signs - 24 hr 02/16/25 21:11 02/17/25 00:43 02/17/25 01:53 Temperature 97.7 F 97.7 F Pulse Rate 78 68 68 Respiratory Rate 18 16 16 Blood Pressure 179/65 H 161/85 H 161/85 H Pulse Oximetry 97 98 98 Oxygen Delivery Method Room Air Room Air Room Air BMI result Body Mass Index 27.7 Const Other: The patient is awake and alert. He is pleasant and cooperative. He has some signs of facial injury but otherwise not seem toxic or in distress. HENMT Other: The patient had some mild ecchymoses under both eyes. He had an abrasion to his lower lip. He had some ecchymosis to the right cheek. Later he seemed to develop some soft tissue swelling to the right cheek that was more pronounced than originally. The nose was not grossly deformed. The patient had blood in both nares. Eyes Other: Pupils are round equal and reactive to light. The patient reports normal vision. Extraocular movements are intact. He has no pain with extraocular movements. Specifically has no pain with the upper gaze. He has no diplopia. Neck Other: No definite posterior C-spine tenderness. Resp Effort & Inspection: normal respiratory effort Auscultation: clear to auscultation bilaterally Cardio Rate: regular rate Rhythm: regular rhythm Heart sounds: S1 normal heart sound present and S2 normal heart sound present GI Other: Abdomen is soft and nontender Skin Other: The skin is intact. There are areas of ecchymoses to the face. He has some ecchymoses under both eyes and to the right cheek. Neuro Other: The patient is awake and alert with a normal mental status. Cranial nerves 2-12 are intact. He moves his extremities symmetrically and appropriately. He seems neurologically intact without focal deficits. Extrem Other: The patient has a mild tenderness in the region of the left antecubital fossa. He has a mild bruising to the left palm. However he moves all the joints of the left arm and hand well and I do not think he has any fractures. Medications Administered Discontinued Medications Generic Name Dose Route Start Last Admin Trade Name Freq PRN Reason Stop Dose Admin Acetaminophen 975 mg 02/17/25 00:15 02/17/25 00:41 Acetaminophen 325 Mg Tablet PO 02/17/25 00:16 975 mg ONCE ONE Administration Amoxicillin/Clavulanate Potassium 875 mg 02/17/25 00:47 02/17/25 01:59 Amoxicillin/Potassium Clav 875 Mg Tablet PO 02/17/25 00:48 875 mg ONCE ONE Administration Oxymetazoline HCl 2 spray 02/16/25 22:37 02/17/25 00:22 Oxymetazoline Hcl 0.05 % Nasal 15 Ml [place] NOSTRIL-B 02/16/25 22:38 2 spray ONCE ONE Administration Medical Decision Making Medical Decision Making [facility] Narrative: The patient is a very pleasant 79-year-old male who takes a full-strength aspirin daily. He had a mechanical fall when he tripped over a dog and landed with his face against a linoleum floor. He had no loss of consciousness. He had a fairly extensive amount of ecchymosis to the face however. There was blood at both nostrils. The the patient had a head CT, cervical spine CT, and a facial bone CT. The head CT and cervical spine CT are negative. The facial bone CT shows: A right orbital floor fracture with a minimal right retro orbital gas. The globes were intact. No apparent retro-orbital hematoma. Additionally there are multiple fractures of the right maxillary sinus. There is a probable subtle fracture of the inferior aspect of the left maxillary sinus. There are fractures of the bilateral pterygoid processes with a probable subtle left nasal bone fracture. There is also gas in the soft tissues of the right face in the region of the maxillary sinus fractures. The patient is not seem to have any ocular or ophthalmological symptoms related to his facial fractures. There was no entrapment. There was no diplopia. No visual complaints. Given the absence of any neurological or visual complaints or other ocular or ophthalmological involvement I do not think he requires transfer to a trauma center. I think these fractures would likely be managed as an outpatient. The patient will be started on Augmentin prophylactically. He was given Tylenol for pain. The patient has been advised to seek outpatient follow up with either Plastic surgery or maxillofacial surgery. He was given contact information for both of these practices. Additionally, since there is a right orbital floor fracture he is also advised to follow up with his lead coater. If you have trouble making a follow up appointments he should contact his primary care doctor for additional advice or assistance. If he is significantly worse he should return to the emergency room. Lab Data 02/16/25 21:27 02/16/25 21:27 Labs: Lab Results 02/16/25 Range/Units 21:27 WBC 7.6 (4.8-10.8) X10*3/uL RBC 4.38 L (4.60-5.80) X10*6/uL Hgb 14.7 (14.0-18.0) g/dl Hct 41.5 L (42.0-52.0) % MCV 94.7 (80.0-98.0) fL MCH 33.6 H (27.0-33.0) pg MCHC 35.4 (31.0-36.0) g/dl RDW 11.6 (11.0-16.0) % Plt Count 148 L (160-400) X10*3/uL MPV 9.1 L (9.4-12.4) fL Immature Gran % (Auto) 0.7 H (0.0-0.4) % Neut % (Auto) 65.0 (45-73) % Lymph % (Auto) 17.3 L (20-40) % [place] % (Auto) 11.6 H (2-11) % Eos % (Auto) 4.7 H (0-4) % Baso % (Auto) 0.7 (0-2) % Lymph # (Auto) 1.3 (1.2-4.9) X10*3/uL [place] # (Auto) 0.9 (0.1-1.2) X10*3/uL Eos # (Auto) 0.4 (0.0-0.4) X10*3/uL Baso # (Auto) 0.1 (0.0-0.2) X10*3/uL Abs Immat Gran (auto) 0.05 H (0.00-0.03) X10*3/uL Absolute Neuts (auto) 5.0 (2.0-8.3) x10*3/uL Absolute Nucleated RBC 0.000 (0.0-0.012) X10*3/uL Nucleated RBC % (auto) 0.0 (0.0-0.2) /100WBC Sodium 134 L (135-145) mmol/L Potassium 4.1 (3.3-5.1) mmol/L Chloride 100 (96-108) mmol/L Carbon Dioxide 26 (22-29) mmol/L Anion Gap 12 (12-20) BUN 18 H (9-16) mg/dL Creatinine 1.12 (0.5-1.4) mg/dL Estim Creat Clear Calc 55.0 Estimated GFR > 60 Random Glucose 139 H (60-115) mg/dL Calcium 9.0 (8.4-10.2) mg/dL Total Bilirubin 0.4 (0.0-1.0) mg/dL AST 27 (5-37) U/L ALT 16 (0-40) U/L Alkaline Phosphatase 75 (39-117) U/L Total Protein 7.1 (6.5-8.0) g/dL Albumin 4.6 (3.5-5.0) g/dL Ethyl Alcohol < 10 mg/dL Discharge Plan Discharge Clinical Impression: Fracture of right maxillary sinus, Closed fracture of right orbital floor, Fall Patient Disposition: Home, Self-Care Instructions: Facial Fracture (ED) Additional Instructions: You have fractures primarily of the maxillary sinus, the sinus on the right side of the face. There is a subtle fracture of the right orbital floor. You were started on antibiotics prophylactically. Please take the antibiotic 2 times a day. Use acetaminophen ( Tylenol) as needed for pain. Please do your best not to blow your nose. Blowing your nose will cause air to be forced into the tissues of your face. On Tuesday pllease contact [facility] surgery or Maxillofacial and Implant surgery [facility] for a follow up appointment. The phone number for [facility] surgery is [phone]. the phone number for maxillofacial and implant surgery [facility] is [phone]. If you have any trouble making these appointments please contact your primary care doctor for assistance. Also please contact your lead coater for an evaluation since you have an orbital floor fracture. Return to the emergency room if you feel significantly worse. Prescriptions: New amoxicillin-pot clavulanate 875-125 mg tablet 1 tab PO BID Qty: 16 0RF No Action lisinopril 10 mg tablet 10 mg PO DAILY Qty: 90 0RF Rx Instructions: needs an appointment for further refills simvastatin 20 mg tablet 20 mg PO BEDTIME Qty: 90 0RF metoprolol tartrate 25 mg tablet 25 mg PO DAILY Qty: 90 0RF aspirin 325 mg tablet 325 mg PO BEDTIME acetaminophen [Tylenol Extra Strength] 500 mg tablet 500 mg PO BEDTIME PRN (Reason: pain or fever) Metamucil (sugar) Powder 1 tbsp PO DAILY PRN (Reason: Constipation) loratadine [Allergy Relief (loratadine)] 10 mg tablet 10 mg PO DAILY fluticasone propionate [Allergy Relief (fluticasone)] 50 mcg/actuation spray,suspension 1 spray intranasal DAILY PRN (Reason: Allergy Symptoms) Rx Instructions: administer into each nostril Referrals: [facility]astic Surgery [Outside] Hong Jamil MD [Physician, Medical] Linden Stanley [Physician, Ophthalmology] Interventions: ED Discharge Assessment Last Done: 02/17/25 01:53 Discharge Date/Time: 02/17/25 01:53 Print Language: Norwegian
[2025-02-17] MEDS: Oxymetazoline HCl 0.05 % Nasal 15 ML SPRAY 2 SPRAY NOSTRIL-B (00:22)
[2025-02-17 00:43] VITALS: BP 161/85; PULSE 68; RESP 16; O2SAT 98
[2025-02-17 01:53] VITALS: BP 161/85; PULSE 68; RESP 16; TEMP 36.5; O2SAT 98
== END 2025-02-17 01:53 | disposition home or self-care (01) ==
PROVIDERS: Emergency Provider Emergency Medicine; PCP Internal Medicine
DX: S02.19XA Other fracture of base of skull, initial encounter for closed fracture (principal); S06.9X0A Unspecified intracranial injury without loss of consciousness, initial encounter; S02.31XA Fracture of orbital floor, right side, initial encounter for closed fracture; W01.0XXA Fall on same level from slipping, tripping and stumbling without subsequent striking against object, initial encounter; Y93.89 Activity, other specified; Y92.098 Other place in other non-institutional residence as the place of occurrence of the external cause; Y99.9 Unspecified external cause status; Z79.82 Long term (current) use of aspirin; Z79.899 Other long term (current) drug therapy
CPT/HCPCS: 36415; 70450; 70486; 72125; 80053; 80307; 85025; 99284

== ENCOUNTER → 2025-02-16 22:36 | Outpatient (BNV) | payer MEDICARE, SELFPAY | PROVIDERS: Emergency Provider Emergency Medicine; PCP Internal Medicine; Visit Provider Radiology Diagnostic Radiology | DX: S02.31XA Fracture of orbital floor, right side, initial encounter for closed fracture (principal); S02.40CA Maxillary fracture, right side, initial encounter for closed fracture; S09.90XA Unspecified injury of head, initial encounter; M54.2 Cervicalgia; W19.XXXA Unspecified fall, initial encounter | CPT/HCPCS: 70450; 70486; 72125 ==

== ENCOUNTER 2025-06-04 12:55 | Outpatient (AMB) | payer MEDICARE, SELFPAY ==
--- NOTE | 2025-06-04 13:11 | MHC.PC.OV ---
Vital Signs 06/04/25 13:12 Height 5 ft 11 in Weight 151 lb 6 oz BMI 21.1 BP 159/72 H Blood Pressure Location Rt brachial Position Sitting Pulse 67 Pulse Source Pulse Oximeter Temp 98.8 F Temp Source Temporal Artery Scan Pulse Oximetry (%) 96 Oxygen Delivery Method Room Air Intake Visit Reasons: 6 mo follow up Intake Note: Patient is here to follow up on HTN, Hypercholesterolemia. Manager Communication Required: No Rent And Housing Investigator: Not Required per policy Accompanied by: Self / Same As Patient Allergies hydrochlorothiazide Adverse Reaction (Unknown, Verified 06/04/25 13:13) hyponatremia ENVIRONMENTAL Allergy (Unknown, Uncoded 02/16/25 21:14) ITCHY EYES Tobacco use date assessed: 06/04/25 Fall risk assessment: 1 Fall in past year Last assessed Fall Risk: 06/04/25 Dental Screening Dental Screen Date: 06/04/25 Did you have a dental visit in the last 12 months?: Yes Did you have a dental problem in the last 6 months where you did not have access to dental care?: No Was dental information given to patient?: Patient has dentist (Dentures) [facility] Medical History History of CVA (cerebrovascular accident) Allergic rhinitis Pure hypercholesterolemia, unspecified Essential (primary) hypertension Surgical History History of colonoscopy (~11/05/15) History of surgery of head History of appendectomy Family History Father No problems noted. Mother No problems noted. Daughter No problems noted. Daughter No problems noted. Social History Household Members: Spouse Housing: House Do you presently have visiting nurse or other home services: No Alcohol intake: current Alcohol intake frequency: does not drink Patient Tobacco Use Status: Never used Tobacco e-Cigarette/Vaping Use: Never Used Second Hand Smoke Exposure: No Advance Directives Date on File: 04/01/24 service: Yes Current occupational status: retired Cognitive needs: No Hearing needs: No Vision needs: Yes (Glasses) Questionnaire PHQ-9 Over the last 2 weeks, how often have you been bothered by any of the following problems? 1. Little interest or pleasure in doing things: not at all 2. Feeling down, depressed, or hopeless: not at all 3. Trouble falling or staying asleep, or sleeping too much: not at all 4. Feeling tired or having little energy: not at all 5. Poor appetite or overeating: not at all 6. Feeling bad about yourself - or that you are a failure or have let yourself or your family down: not at all 7. Trouble concentrating on things, such as reading the newspaper or watching television: not at all 8. Moving or speaking so slowly that other people could have noticed. Or the opposite - being so fidgety or restless that you have been moving around a lot more than usual: not at all 9. Thoughts that you would be better off or of hurting yourself in some way: not at all Total score: 0 Depression Screening Interpretation: Negative Depression Screening Done: Yes Source: Developed by Drs. Diallo Randhawa, Shoshana Childress, Papa Elder and colleagues, with an educational jessica from [employer]. Thrive Questionnaire Date Thrive assessed: 06/04/25 I am a: Patient What is your living situation today?: I have a steady place to live Within the past 12 months, did the food you bought not last and you didn't have the money to get more?: Never true Within the past 12 months, did you worry whether your food would run out before you got money to buy more?: Never true Do you have trouble paying for medicines?: No Do you have trouble getting transportation to medical appointments?: No Do you have trouble paying your heating and electricity bill?: No Do you have trouble taking care of your child, family member or friend?: No Do you have trouble with day-to-day activities such as bathing, preparing meals, shopping, managing finances, etc.?: No Are you currently unemployed and looking for a job?: No Are you interested in more education?: No Please select the resources that you would like help with: None Currently or been in a relationship where the following occur: No concerns reported THRIVE Score: 0 AUDIT C Alcohol Use Questionnaire (AUDIT-C) 1. How often do you have a drink containing alcohol?: 2-4 times a month 2. How many drinks containing alcohol do you have on a typical day when you are drinking?: 1 or 2 Total Score: 2 EMANI-7 AMB Questionnaire EMANI-7 Date EMANI - 7 assessed: 06/04/25 Feeling nervous, anxious, or on edge: 0 = Not at all Not being able to stop or control worryin = Not at all Worrying too much about different things: 0 = Not at all Trouble relaxin = Not at all Being so restless that it is hard to sit still: 0 = Not at all Becoming easily annoyed or irritable: 0 = Not at all Feeling afraid as if something awful might happen: 0 = Not at all Total EMANI-7 score (0-4 normal; 5-9 mild; 10-14 moderate; 15-21 severe): 0 Source: Developed by Drs. Diallo Randhawa, Shoshana Childress, Papa Elder and colleagues, with an educational jessica from [employer]. Physical exam (Primary Care) Vital Signs: Last Vital Signs Temp 98.8 F 06/04/25 13:12 Pulse 67 06/04/25 13:12 BP 159/72 H 06/04/25 13:12 Pulse Ox 96 06/04/25 13:12 Oxygen Delivery Method Room Air 06/04/25 13:12 BMI result Body Mass Index 21.1 Tobacco/Smoking Status: Tobacco use Status Tobacco use date assessed 06/04/25 06/04/25 13:17 Patient Tobacco Use Status Never used Tobacco 06/04/25 13:17 e-Cigarette/Vaping Use Never Used 06/04/25 13:17 PHQ-9: PHQ-9 Score PHQ-9: Total score 0 06/04/25 13:40 Depression Screening Interpretation: Negative Thrive Assessment: Date of Thrive Assessment Date Thrive assessed 06/04/25 06/04/25 13:17 Currently or been in a relationship where the following occur: No concerns reported Office Procedures Flu Questionnaire Does the patient have a severe egg allergy?: No Does the patient have severe life threatening allergies?: No Does the patient have a fever or illness today?: No Has the patient ever had Guillain-Dwight Syndrome?: No Has the patient ever had any past reaction to a flu shot?: No Immunizations Fluarix (PF) 45 mcg (15 mcg x 3)/0.5 mL IM syringe Performing Provider: Vinny Flores MD Performing Location: [facility] Documented (not given) by: Emeli Gonzalez CMA on 06/04/25 13:18 Reason Not Given: Received Previously Coding Level of Care Code Est Pt Level 4 (42040) Complex EM visit Add On G2211 Diagnoses Essential (primary) hypertension I10 Assessment & Plan Assessment & Plan (1) Essential (primary) hypertension: Code(s): I10 - Essential (primary) hypertension Category: Medical Plan: History of Present Illness - The patient is an 79-year-old male presenting with facial trauma. - The trauma occurred on February 16 due to a fall caused by a dog moving unexpectedly, resulting in significant facial pain. - He was evaluated at [facility], received a CT scan, and was treated with Tylenol. - Reconstruction surgery was considered but not required, and the patient reports no ongoing pain. - The patient also has cataracts causing cloudy vision and plans to consult an director of respiratory therapy. - He intends to receive an influenza vaccination soon. Social History - The patient engages in physical activity by mowing the lawn with a self-propelled mower, which he considers exercise. Review of Systems - General: Denies ongoing pain. - Ophthalmologic: Reports cloudy vision due to cataracts. Physical Exam General: Cooperative and healthy appearing Nutritional Appearance: Well nourished Orientation/consciousness: Patient oriented x3 Limitations: No limitations Head: Normal to inspection General: Appearance normal, both eyes and all related structures Neck: Normal visual inspection Chest: Normal palpation of entire chest wall Respiratory: N ormal respiratory effort Neurology: Patient oriented x3, no further treatment needed after reconstruction surgery. Results - Imaging: CT scan performed at [facility] for facial trauma evaluation. Plan - Follow-up with an director of respiratory therapy for cataract management. - Receive influenza vaccination as planned. Discussion Notes During the visit, we discussed the patient's recent facial trauma and the subsequent care received at [facility]. The patient was advised to follow up with an director of respiratory therapy for cataract evaluation. We also discussed the importance of receiving the influenza vaccination, which the patient plans to do at [facility]. Patient Instructions - Follow up with Dr. Mendoza for cataract evaluation. - Get your flu shot at [facility] as planned. Orders: Orders Influenza [id number] Immunization Today Z23 - Encounter for immunization
[2025-06-04 13:12] VITALS: BP 159/72; PULSE 67; TEMP 37.1; O2SAT 96; BMI 21.1
== END 2025-06-04 13:45 | disposition home or self-care (01) ==
LOC: HO.HMCSH 12:55
PROVIDERS: PCP Internal Medicine; Visit Provider Internal Medicine
DX: Z23 Encounter for immunization (principal); I10 Essential (primary) hypertension

== ENCOUNTER → 2025-06-04 12:55 | Outpatient (BNVA) | payer MEDICARE, SELFPAY | PROVIDERS: PCP Internal Medicine; Visit Provider Internal Medicine | DX: I10 Essential (primary) hypertension (principal); H26.9 Unspecified cataract; Z13.31 Encounter for screening for depression; Z13.39 Encounter for screening examination for other mental health and behavioral disorders | CPT/HCPCS: 90471; 96127; 99212 ==

== ENCOUNTER 2025-06-22 09:52 | Outpatient (AMB) | payer MEDICARE, SELFPAY ==
--- NOTE | 2025-06-22 11:51 | AM.OFFWIN_ITS ---
Intake Vital Signs 06/22/25 11:53 Height 5 ft 11 in BP 148/74 H Blood Pressure Location Lt brachial Position Sitting Pulse 73 Pulse Source Pulse Oximeter Temp 97.4 F Pulse Oximetry (%) 96 Oxygen Delivery Method Room Air Intake Visit Reasons: EP-Sinus infection Patient Tobacco Use Status: Never used Tobacco Allergies hydrochlorothiazide Adverse Reaction (Unknown, Verified 06/22/25 11:54) hyponatremia ENVIRONMENTAL Allergy (Unknown, Uncoded 02/16/25 21:14) ITCHY EYES Do you need a note to return to daycare/school/sports/work: No HPI HPI Comments History of Present Illness Details This is an 79-year-old male who presented to the walk-in clinic complaining of viral URI symptoms times 7-10 days. Patient reports moderate nasal congestion and sinus pain/pressure with thick white mucus that has been ongoing for the past 1 week. He also reports a cough, which is productive of thick white sputum. He denies any fevers or chills. He states he did have a sore throat when his symptoms first began but this has since resolved. He has been using [id number] sinus medications, which have been helping slightly. He states his was seen at the walk-in yesterday with similar symptoms and was diagnosed with a sinus infection and given antibiotics. Patient otherwise denies any chest pain, shortness of breath, abdominal pain, nausea/vomiting/diarrhea. [facility] Medical History History of CVA (cerebrovascular accident) Allergic rhinitis Pure hypercholesterolemia, unspecified Essential (primary) hypertension Surgical History History of colonoscopy (~11/05/15) History of surgery of head History of appendectomy Family History Father No problems noted. Mother No problems noted. Daughter No problems noted. Daughter No problems noted. Social History Household Members: Spouse Housing: House Do you presently have visiting nurse or other home services: No Alcohol intake: current Alcohol intake frequency: does not drink Patient Tobacco Use Status: Never used Tobacco e-Cigarette/Vaping Use: Never Used Second Hand Smoke Exposure: No Advance Directives Date on File: 04/01/24 service: Yes Current occupational status: retired Cognitive needs: No Hearing needs: No Vision needs: Yes (Glasses) Review of Systems Const All systems reviewed & are unremarkable except as noted in HPI and below Reports no additional complaints Eyes Reports no additional complaints ENT Reports no additional complaints Card Reports no additional complaints Resp Reports no additional complaints GI Reports no additional complaints Reports no additional complaints Musc Reports no additional complaints Skin/Breast Reports system reviewed and no additional complaints, except as documented Neuro Reports no additional complaints Psych Reports no additional complaints Endo Reports no additional complaints Claudy/Lymph Reports no additional complaints Aller/Immun Reports no additional complaints Physical Exam Exam Exam: Vital signs reviewed. Constitutional: Non-toxic appearing. No acute distress. Well-developed and well-nourished. HEENT: Normocephalic and atraumatic. Tympanic membranes without erythema, edema, or bulging bilaterally. External auditory canals without erythema or edema bilaterally. Moist mucous membranes. No pharyngeal erythema or exudates. Skin: Warm and dry. No rashes or lesions noted. Neck: Full and painless range of motion. No cervical lymphadenopathy. Cardio: Regular rate and rhythm. No murmurs, gallops, or rubs. No lower extremity edema. No JVD. Pulmonary: No respiratory distress. No accessory muscle usage. Clear to auscultation bilaterally without wheezing, crackles, or rhonchi. Gastrointestinal: Soft, nontender, and nondistended in all 4 quadrants. Normoactive bowel sounds in all 4 quadrants. Musculoskeletal: Normal range of motion in joints throughout the body. No deformity or other signs of injury. Neuro: Alert and oriented x4. Cranial nerves 2-12 grossly intact. No focal deficits appreciated. Psych: Normal mood and affect. Vital Signs: Last Vital Signs Temp 97.4 F 06/22/25 11:53 Pulse 73 06/22/25 11:53 BP 148/74 H 06/22/25 11:53 Pulse Ox 96 06/22/25 11:53 Oxygen Delivery Method Room Air 06/22/25 11:53 Assessment & Plan Assessment & Plan (1) Acute rhinosinusitis: Code(s): J01.90 - Acute sinusitis, unspecified (2) Acute upper respiratory infection, unspecified: Code(s): J06.9 - Acute upper respiratory infection, unspecified Plan 79-year-old male who presented to the walk-in clinic complaining of viral URI symptoms x 7-10 days. His vital signs are stable and his physical exam is benign. History and physical most consistent with acute bacterial rhinosinusitis and an acute upper respiratory tract infection. Patient was given PO amoxicillin/clavulanate 875/125 mg twice daily x7 days. I also recommended symptomatic management including rest, increased fluids, advil/tylenol for pain/fever as long as he has no medical contraindications, humidification at nighttime, and over the counter throat lozenges/decongestants. Patient advised to follow up here or go to the emergency room for worsening/persistent symptoms. Patient verbalized understanding and is agreeable with the plan. Medications: New amoxicillin-pot clavulanate 875-125 mg 1 tab PO BID 14 tabs 0RF Coding Level of Care Code Est Pt Level 3 (94102) Diagnoses Acute rhinosinusitis J01.90 Acute upper respiratory infection, unspecified J06.9
[2025-06-22 11:53] VITALS: BP 148/74; PULSE 73; TEMP 36.3; O2SAT 96
== END 2025-06-22 12:17 | disposition home or self-care (01) ==
LOC: HO.HMCWIC 09:52
PROVIDERS: PCP Internal Medicine; Visit Provider Physician Assistant Medical
DX: J01.90 Acute sinusitis, unspecified (principal); J06.9 Acute upper respiratory infection, unspecified

== ENCOUNTER → 2025-06-22 09:52 | Outpatient (BNVA) | payer MEDICARE, SELFPAY | PROVIDERS: PCP Internal Medicine; Visit Provider Physician Assistant Medical | DX: I10 Essential (primary) hypertension (principal); J01.90 Acute sinusitis, unspecified; J06.9 Acute upper respiratory infection, unspecified | CPT/HCPCS: 99212 ==